=== PATIENT | female | born 2000 | race American Indian/Alaskan Native ===

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

== ENCOUNTER 2018-05-19 19:56 | Emergency (ER) | payer MEDICAID ==
--- NOTE | 2018-05-19 20:10 | Emergency Department Report ---
Blank Doc - Documentation Documentation: This is a 18-year-old female that presents with nausea vomiting. This initial assessment/diagnostic orders/clinical plan/treatment(s) is/are subject to change based on patient's health status, clinical progression and re- assessment by fellow clinical providers in the ED. Further treatment and workup at subsequent clinical providers discretion. Patient/guardians urged not to elope from the ED as their condition may be serious if not clinically assessed and managed. Initial orders include: 1- Patient sent to [facility] for further evaluation and treatment 2- labs 3- UA
[2018-05-19 20:46] LABS: Basophils % (Auto) 0.6 % (0.0-1.8); Eosinophils % (Auto) 0.5 % (0.0-4.3); Hematocrit 40.5 % (30.3-42.9); Hemoglobin 13.9 gm/dl (10.1-14.3); Lymphocytes # (Auto) 2.4 K/mm3 (1.2-5.4); Lymphocytes % (Auto) 33.1 % (13.4-35.0); Mean Corpuscular HGB Conc 34 % (30-34); Mean Corpuscular Volume 89 fl (79-97); Monocytes # (Auto) 0.6 K/mm3 (0.0-0.8); Monocytes % (Auto) 7.9 % (0.0-7.3); Platelet Count 159 K/mm3 (140-440); Red Blood Count 4.55 M/mm3 (3.65-5.03); Red Cell Distribution Width 13.7 % (13.2-15.2)
[2018-05-19 20:54] LABS: Alanine Aminotransferase 19 units/L (7-56); Albumin 4.3 g/dL (3.9-5); BUN/Creatinine Ratio 9; Blood Urea Nitrogen 7 mg/dL (7-17); Calcium 9.4 mg/dL (8.4-10.2); Hemolysis Index 11
[2018-05-19 21:00] LABS: Bilirubin,Direct < 0.2 mg/dL (0-0.2)
[2018-05-19 21:22] LABS: Bilirubin,Urine NEG (Negative); Blood,Urine NEG (Negative); Color,Urine Yellow (Yellow); Mucus,Urine FEW /HPF; Urobilinogen,Urine < 2.0 mg/dL (<2.0)
[2018-05-19 21:24] LABS: Protein,Urine >500 mg/dL (Negative)
[2018-05-19 21:25] LABS: HCG Qualitative,Urine Negative (Negative)
--- NOTE | 2018-05-19 23:57 | Emergency Department Report ---
Vomiting/Diarrhea - [facility] Chief Complaint: Nausea/Vomiting/Diarrhea Stated Complaint: N/V Time Seen by Provider: 05/19/18 20:09 Duration: Today Severity: moderate Nausea/Vomiting Severity: Moderate Diarrhea Severity: None Pain Location: Generalized Pain Severity: None Symptoms: Yes Able to Tolerate Fluids, No Watery Diarrhea, No Bloody diarrhea, No Fever, No Recent Unusual Foods, No Recent Untreated Water, No Recent use of Antibiotics, No Family w/ Similar Symptoms, No Contacts w/ Similar Symptoms, No Rash, No Hematuria, No Recent URI Symptoms Other History: This is a 18-year-old -[place] female accompanied by mother with nausea and vomiting that started this morning. Patient states she was at school and felt nauseous without vomiting. When she arrived home nausea increase with vomiting. Mother states patient vomited multiple times and unable to keep anything down. Patient reports a burning sensation to upper abdomen that is radiating to chest. ED Review of Systems ROS: Stated complaint: N/V Other details as noted in HPI Constitutional: denies: chills, fever Respiratory: denies: cough, shortness of breath, wheezing Cardiovascular: denies: chest pain, palpitations Gastrointestinal: nausea, vomiting. denies: abdominal pain (epigastric pain), diarrhea Genitourinary: denies: urgency, dysuria, discharge Skin: denies: rash, lesions Neurological: denies: headache, weakness, paresthesias Psychiatric: denies: anxiety, depression ED Past Medical Hx - Past Medical History Hx Psychiatric Treatment: Yes (anxiety) Additional medical history: Schizophrenia - Social History Smoking Status: Never Smoker Substance Use Type: None - Medications Home Medications: Home Medications Medication Instructions Recorded Confirmed Last Taken Type Benztropine [Cogentin] 2 mg PO QHS 02/28/16 02/28/16 Unknown History Ciprofloxacin HCl [Cipro] 500 mg PO BID #14 tablet 05/20/18 Unknown Rx Ondansetron [Zofran Odt] 4 mg PO Q8HR PRN #15 tab.rapdis 05/20/18 Unknown Rx Vomiting Diarrhea Exam - Exam General: Vital signs noted. No distress. Alert and acting appropriately. HEENT: Yes Pharyngeal Erythema (erythematous posterior pharynx, uvula midline), Yes Moist Mucous Membranes, No Pharyngeal Exudates, No Rhinorrhea, No Conjuctival Injection, No Frontal Tenderness, No Maxillary Tenderness Neck: No Adenopathy, No Rigidity Lungs: Yes Clear Lung Sounds, Yes Good Air Exchange, No Wheezes, No Stridor, No Cough, No Nasal Flaring, No Retractions, No Use of Accessory Muscles Heart exam: Regular: Yes, Murmur: No, Tachycardia: No Abdomen: Tenderness: No, Peritoneal Signs: No, Distention: No, Hyperactive Bowel sounds: No Skin exam: Rash: No, Edema: No, Normal turgor: Yes Neurologic: Alert and oriented, no deficits. Musculoskeletal: Unremarkable. ED Course Vital Signs 05/19/18 20:10 Temperature 98.7 F Pulse Rate 72 Respiratory 20 Rate Blood Pressure 146/90 O2 Sat by Pulse 98 Oximetry ED Medical Decision Making - Lab Data Result diagrams: 05/19/18 20:16 05/19/18 20:16 Lab Results 05/19/18 05/19/18 05/19/18 Range/Units 20:16 20:16 20:34 WBC 7.2 (4.5-11.0) K/mm3 RBC 4.55 (3.65-5.03) M/mm3 Hgb 13.9 (10.1-14.3) gm/dl Hct 40.5 (30.3-42.9) % MCV 89 (79-97) fl MCH 31 (28-32) pg MCHC 34 (30-34) % RDW 13.7 (13.2-15.2) % Plt Count 159 (140-440) K/mm3 Lymph % (Auto) 33.1 (13.4-35.0) % [place] % (Auto) 7.9 H (0.0-7.3) % Eos % (Auto) 0.5 (0.0-4.3) % Baso % (Auto) 0.6 (0.0-1.8) % Lymph # 2.4 (1.2-5.4) K/mm3 [place] # 0.6 (0.0-0.8) K/mm3 Eos # 0.0 (0.0-0.4) K/mm3 Baso # 0.0 (0.0-0.1) K/mm3 Seg Neutrophils % 57.9 (40.0-70.0) % Seg Neutrophils # 4.2 (1.8-7.7) K/mm3 Sodium 140 (137-145) mmol/L Potassium 3.9 (3.6-5.0) mmol/L Chloride 101.2 (98-107) mmol/L Carbon Dioxide 28 (22-30) mmol/L Anion Gap 15 mmol/L BUN 7 (7-17) mg/dL Creatinine 0.8 (0.7-1.2) mg/dL Estimated GFR > 60 ml/min BUN/Creatinine Ratio 9 % Glucose 120 H (65-100) mg/dL Calcium 9.4 (8.4-10.2) mg/dL Total Bilirubin 0.40 (0.1-1.2) mg/dL Direct Bilirubin < 0.2 (0-0.2) mg/dL Indirect Bilirubin 0.2 mg/dL AST 20 (5-40) units/L ALT 19 (7-56) units/L Alkaline Phosphatase 62 (35-129) units/L Total Protein 7.6 (6.3-8.2) g/dL Albumin 4.3 (3.9-5) g/dL Albumin/Globulin Ratio 1.3 % Lipase 21 (13-60) units/L Urine Color Yellow (Yellow) Urine Turbidity Clear (Clear) Urine pH 7.0 (5.0-7.0) Ur Specific [place] 1.023 (1.003-1.030) Urine Protein >500 (Negative) mg/dL Urine Glucose (UA) Neg (Negative) mg/dL Urine Ketones Neg (Negative) mg/dL Urine Blood Neg (Negative) Urine Nitrite Neg (Negative) Urine Bilirubin Neg (Negative) Urine Urobilinogen < 2.0 (<2.0) mg/dL Ur Leukocyte Esterase Sm (Negative) Urine WBC (Auto) 9.0 H (0.0-6.0) /HPF Urine RBC (Auto) 4.0 (0.0-6.0) /HPF U Epithel Cells (Auto) 2.0 (0-13.0) /HPF Urine Mucus Few /HPF Urine HCG, Qual Negative (Negative) - Medical Decision Making Patient was examined by me. Vitals are normal and patient is in no acute distr ess. Obtained labs. Mild leukocyte Estrace and urinalysis. All of the labs are unremarkable. On focal exam patient is nontender to abdomen with palpation. Patient will be treated for acute cystitis. Patient informed of results. Start Zofran and nitrofurantoin. Plan discussed with patient to discharge home and treat outpatient. He agrees with ER plan. Patient discharged home in stable condition. Follow up with PCP in 2-3 days. Critical care attestation.: If time is entered above; I have spent that time in minutes in the direct care of this critically ill patient, excluding procedure time. ED Disposition Clinical Impression: Nausea and vomiting in adult patient Acute cystitis Qualifiers: Hematuria presence: without hematuria Qualified Code(s): N30.00 - Acute cystitis without hematuria Disposition: TO HOME OR SELFCARE Is pt being admited?: No Does the pt Need Aspirin: No Condition: Stable Instructions: Urinary Tract Infection in Women (ED), Acute Nausea and Vomiting (ED) Additional Instructions: Increase fluid intake to 1L to 2L daily. Complete full course of antibiotics as prescribed. Avoid drinking alcohol while taking antibiotics and for 24 hours after completion. Follow up with primary care provider in 2-3 days. Prescriptions: Ciprofloxacin HCl [Cipro] 500 mg PO BID #14 tablet Ondansetron [Zofran Odt] 4 mg PO Q8HR PRN #15 tab.rapdis PRN Reason: Nausea And Vomiting Referrals: YANNICK MURRELL MD [Primary Care Provider] - 3-5 Days Forms: Accompanied Note, Work/School Release Form(ED) Time of Disposition: 00:57
[2018-05-20] MEDS ORDERED: ZOFRAN IV ONE (00:16)
[2018-05-20] MEDS ORDERED: NACL 0.9% 1000 ML 1,000 ML IV ONE (00:16)
[2018-05-20 02:11] VITALS: BP 105/60
== END 2018-05-20 02:36 | disposition home or self-care (01) ==
LOC: ED 19:56
DX: R11.2 Nausea with vomiting, unspecified (principal); N30.00 Acute cystitis without hematuria
CPT/HCPCS: 36415; 80048; 80076; 81001; 81025; 83690; 85025; 96361; 96374; 99284; J2405; J7030

== ENCOUNTER 2018-07-05 21:07 | Emergency (ER) | payer MEDICAID ==
[2018-07-05] MEDS ORDERED: ATIVAN IM PRN (21:37)
--- NOTE | 2018-07-05 21:38 | Emergency Department Report ---
ED General Adult HPI - General Chief complaint: Psych Stated complaint: MH EVAL/BODY PAIN Time Seen by Provider: 07/05/18 21:29 Source: patient, family, RN notes reviewed Mode of arrival: Ambulatory Limitations: Other (patient is psychotic. Patient is disorganized.) - History of Present Illness Initial comments: This is a 18-year-old female. The patient is not known to this provider previously. The patient has a history of psychiatric disease, and is brought to the hospital by her mother for psychosis. Initially, in the emergency room, patient screaming, feels like her chest is opening up, having tactile hallucinations, and is very difficult to redirect. Patient required medication with Haldol. After medication, patient denies physical pain. She may no complaint of overdosing. Her mother is a very poor historian. The patient is psychotic, and she cannot describe exacerbating or relieving factors, qualitative nature of her symptoms, radiation, or how long her symptoms have been going on for. -: unknown Radiation: other Quality: other Consistency: other Improves with: other Worsens with: other - Related Data Home Medications Medication Instructions Recorded Confirmed Last Taken Benztropine [Cogentin] 2 mg PO QHS 02/28/16 07/05/18 Unknown Previous Rx's Medication Instructions Recorded Last Taken Type Ciprofloxacin HCl [Cipro] 500 mg PO BID #14 tablet 05/20/18 Unknown Rx Ondansetron [Zofran Odt] 4 mg PO Q8HR PRN #15 tab.rapdis 05/20/18 Unknown Rx Allergies Allergy/AdvReac Type Severity Reaction Status Date / Time No Known Allergies Allergy Unverified 02/28/16 12:23 ED Review of Systems ROS: Stated complaint: MH EVAL/BODY PAIN Other details as noted in HPI Comment: Unobtainable due to pts medical conditions ED Past Medical Hx - Past Medical History Hx Psychiatric Treatment: Yes (anxiety) Additional medical history: Schizophrenia - Social History Smoking Status: Never Smoker Substance Use Type: None - Medications Home Medications: Home Medications Medication Instructions Recorded Confirmed Last Taken Type Benztropine [Cogentin] 2 mg PO QHS 02/28/16 07/05/18 Unknown History Ciprofloxacin HCl [Cipro] 500 mg PO BID #14 tablet 05/20/18 07/05/18 Unknown Rx Ondansetron [Zofran Odt] 4 mg PO Q8HR PRN #15 tab.rapdis 05/20/18 07/05/18 Unknown Rx ED Physical Exam - General Limitations: Other (patient is psychotic and disorganized) General appearance: in distress, obese, other (patient initially yelling and screaming, sentence structure makes no sense.) - Head Head exam: Present: atraumatic, normocephalic - Eye Eye exam: Present: normal appearance, EOMI. Absent: nystagmus - ENT ENT exam: Present: normal exam, normal orophraynx, mucous membranes moist, normal external ear exam - Neck Neck exam: Present: normal inspection, full ROM. Absent: tenderness, meningismus - Respiratory Respiratory exam: Present: normal lung sounds bilaterally. Absent: respiratory distress - Cardiovascular Cardiovascular Exam: Present: normal rhythm, tachycardia, normal heart sounds. Absent: bradycardia, systolic murmur, diastolic murmur, rubs, gallop - GI/Abdominal GI/Abdominal exam: Present: soft. Absent: distended, tenderness, guarding, rebound, rigid, pulsatile mass - Extremities Exam Extremities exam: Present: normal inspection, full ROM, other (2+ pulses noted in the bilateral upper, lower extremities. Compartments soft. No long bony tenderness. The pelvis is stable.). Absent: pedal edema, joint swelling, calf tenderness - Back Exam Back exam: Present: normal inspection, full ROM. Absent: tenderness, CVA tenderness (R), paraspinal tenderness, vertebral tenderness - Neurological Exam Neurological exam: Present: alert (patient name. Follows some commands after Haldol.), other (there is no facial droop. Moving 4 extremities. Yelling nonsensically.) - Psychiatric Psychiatric exam: Present: anxious - Skin Skin exam: Present: warm, dry, intact, normal color. Absent: rash ED Course Vital Signs 07/05/18 07/05/18 21:16 23:08 Temperature 98.5 F 98.2 F Pulse Rate 126 H 75 Respiratory 18 16 Rate Blood Pressure 169/104 Blood Pressure 130/86 [Left] O2 Sat by Pulse 96 96 Oximetry - Reevaluation(s) Reevaluation #1: 07/05/18 23:57 Differential diagnosis, including not limited to: Psychosis, medical clearance for psychiatric placement Assessment and plan: 18-year-old female with probable psychosis. Abnormal vital signs have normalized. Of note, during the patient's initial evaluation, she would stop screaming, and was able to answer what medication she took. She was also able to describe the indications for some of her medications. Her physical exam is now unremarkable, screening laboratory studies unremarkable. We will continue most of her current outpatient medications. She is placed on a 1013. At this point in time, the patient does not appear to have an immediate medical contraindication to psychiatric admission, evaluation and consultation. Her physical exam is unremarkable, and she is resting comfortably in her stretcher. A psychiatric consultation is requested. ED Medical Decision Making - Lab Data Result diagrams: 07/05/18 23:19 07/05/18 21:46 Vital Signs 07/05/18 07/05/18 21:16 23:08 Temperature 98.5 F 98.2 F Pulse Rate 126 H 75 Respiratory 18 16 Rate Blood Pressure 169/104 Blood Pressure 130/86 [Left] O2 Sat by Pulse 96 96 Oximetry Lab Results 07/05/18 07/05/18 07/05/18 Range/Units 21:46 21:46 21:46 WBC (4.5-11.0) K/mm3 RBC (3.65-5.03) M/mm3 Hgb (10.1-14.3) gm/dl Hct (30.3-42.9) % MCV (79-97) fl MCH (28-32) pg MCHC (30-34) % RDW (13.2-15.2) % Plt Count (140-440) K/mm3 Sodium 142 (137-145) mmol/L Potassium 4.1 (3.6-5.0) mmol/L Chloride 102.8 (98-107) mmol/L Carbon Dioxide 25 (22-30) mmol/L Anion Gap 18 mmol/L BUN 8 (7-17) mg/dL Creatinine 1.0 (0.7-1.2) mg/dL Estimated GFR > 60 ml/min BUN/Creatinine Ratio 8 % Glucose 98 (65-100) mg/dL Calcium 10.0 (8.4-10.2) mg/dL Magnesium 1.90 (1.7-2.3) mg/dL Total Creatine Kinase 381 H (30-135) units/L TSH (0.270-4.200) mlU/mL Free T4 1.32 (0.76-1.46) ng/dL HCG, Quant (0-4) mIU/mL Urine Color (Yellow) Urine Turbidity (Clear) Urine pH (5.0-7.0) Ur Specific [place] (1.003-1.030) Urine Protein (Negative) mg/dL Urine Glucose (UA) (Negative) mg/dL Urine Ketones (Negative) mg/dL Urine Blood (Negative) Urine Nitrite (Negative) Urine Bilirubin (Negative) Urine Urobilinogen (<2.0) mg/dL Ur Leukocyte Esterase (Negative) Urine WBC (Auto) (0.0-6.0) /HPF Urine RBC (Auto) (0.0-6.0) /HPF U Epithel Cells (Auto) (0-13.0) /HPF Urine Mucus /HPF Salicylates (2.8-20.0) mg/dL Urine Opiates Screen Urine Methadone Screen Acetaminophen (10.0-30.0) ug/mL Ur Barbiturates Screen Valproic Acid (50-100) ug/mL Ur Phencyclidine Scrn Ur Amphetamines Screen U Benzodiazepines Scrn Urine Cocaine Screen U Marijuana (THC) Screen Drugs of Abuse Note Plasma/Serum Alcohol (0-0.07) % 07/05/18 07/05/18 07/05/18 Range/Units 21:46 21:46 21:46 WBC (4.5-11.0) K/mm3 RBC (3.65-5.03) M/mm3 Hgb (10.1-14.3) gm/dl Hct (30.3-42.9) % MCV (79-97) fl MCH (28-32) pg MCHC (30-34) % RDW (13.2-15.2) % Plt Count (140-440) K/mm3 Sodium (137-145) mmol/L Potassium (3.6-5.0) mmol/L Chloride (98-107) mmol/L Carbon Dioxide (22-30) mmol/L Anion Gap mmol/L BUN (7-17) mg/dL Creatinine (0.7-1.2) mg/dL Estimated GFR ml/min BUN/Creatinine Ratio % Glucose (65-100) mg/dL Calcium (8.4-10.2) mg/dL Magnesium (1.7-2.3) mg/dL Total Creatine Kinase (30-135) units/L TSH 0.887 (0.270-4.200) mlU/mL Free T4 (0.76-1.46) ng/dL HCG, Quant < 2 (0-4) mIU/mL Urine Color (Yellow) Urine Turbidity (Clear) Urine pH (5.0-7.0) Ur Specific [place] (1.003-1.030) Urine Protein (Negative) mg/dL Urine Glucose (UA) (Negative) mg/dL Urine Ketones (Negative) mg/dL Urine Blood (Negative) Urine Nitrite (Negative) Urine Bilirubin (Negative) Urine Urobilinogen (<2.0) mg/dL Ur Leukocyte Esterase (Negative) Urine WBC (Auto) (0.0-6.0) /HPF Urine RBC (Auto) (0.0-6.0) /HPF U Epithel Cells (Auto) (0-13.0) /HPF Urine Mucus /HPF Salicylates < 0.3 L (2.8-20.0) mg/dL Urine Opiates Screen Urine Methadone Screen Acetaminophen (10.0-30.0) ug/mL Ur Barbiturates Screen Valproic Acid (50-100) ug/mL Ur Phencyclidine Scrn Ur Amphetamines Screen U Benzodiazepines Scrn Urine Cocaine Screen U Marijuana (THC) Screen Drugs of Abuse Note Plasma/Serum Alcohol (0-0.07) % 07/05/18 07/05/18 07/05/18 Range/Units 21:46 21:46 21:46 WBC (4.5-11.0) K/mm3 RBC (3.65-5.03) M/mm3 Hgb (10.1-14.3) gm/dl Hct (30.3-42.9) % MCV (79-97) fl MCH (28-32) pg MCHC (30-34) % RDW (13.2-15.2) % Plt Count (140-440) K/mm3 Sodium (137-145) mmol/L Potassium (3.6-5.0) mmol/L Chloride (98-107) mmol/L Carbon Dioxide (22-30) mmol/L Anion Gap mmol/L BUN (7-17) mg/dL Creatinine (0.7-1.2) mg/dL Estimated GFR ml/min BUN/Creatinine Ratio % Glucose (65-100) mg/dL Calcium (8.4-10.2) mg/dL Magnesium (1.7-2.3) mg/dL Total Creatine Kinase (30-135) units/L TSH (0.270-4.200) mlU/mL Free T4 (0.76-1.46) ng/dL HCG, Quant (0-4) mIU/mL Urine Color (Yellow) Urine Turbidity (Clear) Urine pH (5.0-7.0) Ur Specific [place] (1.003-1.030) Urine Protein (Negative) mg/dL Urine Glucose (UA) (Negative) mg/dL Urine Ketones (Negative) mg/dL Urine Blood (Negative) Urine Nitrite (Negative) Urine Bilirubin (Negative) Urine Urobilinogen (<2.0) mg/dL Ur Leukocyte Esterase (Negative) Urine WBC (Auto) (0.0-6.0) /HPF Urine RBC (Auto) (0.0-6.0) /HPF U Epithel Cells (Auto) (0-13.0) /HPF Urine Mucus /HPF Salicylates (2.8-20.0) mg/dL Urine Opiates Screen Urine Methadone Screen Acetaminophen < 5.0 L (10.0-30.0) ug/mL Ur Barbiturates Screen Valproic Acid < 2.8 L (50-100) ug/mL Ur Phencyclidine Scrn Ur Amphetamines Screen U Benzodiazepines Scrn Urine Cocaine Screen U Marijuana (THC) Screen Drugs of Abuse Note Plasma/Serum Alcohol < 0.01 (0-0.07) % 07/05/18 07/05/18 07/05/18 Range/Units 23:08 23:08 23:19 WBC 6.0 (4.5-11.0) K/mm3 RBC 4.52 (3.65-5.03) M/mm3 Hgb 13.9 (10.1-14.3) gm/dl Hct 40.3 (30.3-42.9) % MCV 89 (79-97) fl MCH 31 (28-32) pg MCHC 34 (30-34) % RDW 13.3 (13.2-15.2) % Plt Count 169 (140-440) K/mm3 Sodium (137-145) mmol/L Potassium (3.6-5.0) mmol/L Chloride (98-107) mmol/L Carbon Dioxide (22-30) mmol/L Anion Gap mmol/L BUN (7-17) mg/dL Creatinine (0.7-1.2) mg/dL Estimated GFR ml/min BUN/Creatinine Ratio % Glucose (65-100) mg/dL Calcium (8.4-10.2) mg/dL Magnesium (1.7-2.3) mg/dL Total Creatine Kinase (30-135) units/L TSH (0.270-4.200) mlU/mL Free T4 (0.76-1.46) ng/dL HCG, Quant (0-4) mIU/mL Urine Color Yellow (Yellow) Urine Turbidity Clear (Clear) Urine pH 6.0 (5.0-7.0) Ur Specific [place] 1.025 (1.003-1.030) Urine Protein 100 mg/dl (Negative) mg/dL Urine Glucose (UA) Neg (Negative) mg/dL Urine Ketones Neg (Negative) mg/dL Urine Blood Neg (Negative) Urine Nitrite Neg (Negative) Urine Bilirubin Neg (Negative) Urine Urobilinogen 2.0 (<2.0) mg/dL Ur Leukocyte Esterase Sm (Negative) Urine WBC (Auto) 5.0 (0.0-6.0) /HPF Urine RBC (Auto) 3.0 (0.0-6.0) /HPF U Epithel Cells (Auto) 1.0 (0-13.0) /HPF Urine Mucus 1+ /HPF Salicylates (2.8-20.0) mg/dL Urine Opiates Screen Presumptive negative Urine Methadone Screen Presumptive negative Acetaminophen (10.0-30.0) ug/mL Ur Barbiturates Screen Presumptive negative Valproic Acid (50-100) ug/mL Ur Phencyclidine Scrn Presumptive negative Ur Amphetamines Screen Presumptive negative U Benzodiazepines Scrn Presumptive negative Urine Cocaine Screen Presumptive negative U Marijuana (THC) Screen Presumptive negative Drugs of Abuse Note Disclamer Plasma/Serum Alcohol (0-0.07) % - EKG Data -: EKG Interpreted by Me EKG shows normal: sinus rhythm Rate: normal - EKG Data 07/05/18 23:57 This is a sinus rhythm, 86 bpm, normal axis, normal intervals, motion artifact, EKG does not appear to represent ST elevation myocardial infarction, this is an unremarkable EKG. Critical care attestation.: If time is entered above; I have spent that time in minutes in the direct care of this critically ill patient, excluding procedure time. ED Disposition Clinical Impression: Psychosis Disposition: DC/TX-65 PSY HOSP/PSY UNIT Is pt being admited?: No Condition: Good Referrals: PRIMARY CARE, [Primary Care Provider] - 3-5 Days
[2018-07-05] MEDS ORDERED: HALDOL ONE (21:41)
[2018-07-05] MEDS ORDERED: ATIVAN ONE (21:41)
[2018-07-05] MEDS: HALDOL IM PRN (21:46)
[2018-07-05] MEDS ORDERED: GEODON IM ONE ×2 (22:19→22:30)
[2018-07-05 22:30] LABS: BUN/Creatinine Ratio 8; Blood Urea Nitrogen 8 mg/dL (7-17); Hemolysis Index 6
[2018-07-05 23:29] LABS: Hematocrit 40.3 % (30.3-42.9); Hemoglobin 13.9 gm/dl (10.1-14.3); Mean Corpuscular HGB Conc 34 % (30-34); Mean Corpuscular Volume 89 fl (79-97); Platelet Count 169 K/mm3 (140-440); Red Blood Count 4.52 M/mm3 (3.65-5.03); Red Cell Distribution Width 13.3 % (13.2-15.2)
[2018-07-05 23:34] LABS: Amphetamine Screen,Urine PRESUMPTIVE NEGATIVE; Benzodiazepines Screen,Urine PRESUMPTIVE NEGATIVE; Cannabinoid Screen,Urine PRESUMPTIVE NEGATIVE; Cocaine Screen,Urine PRESUMPTIVE NEGATIVE; Methadone Screen,Urine PRESUMPTIVE NEGATIVE; Opiate Screen,Urine PRESUMPTIVE NEGATIVE
[2018-07-05 23:35] LABS: Bilirubin,Urine NEG (Negative); Blood,Urine NEG (Negative); Color,Urine Yellow (Yellow); Mucus,Urine 1+ /HPF
[2018-07-06] MEDS ORDERED: PROTONIX PO SCH (10:00)
[2018-07-06] MEDS ORDERED: TRIMOX PO SCH (10:00)
[2018-07-06] MEDS ORDERED: BIAXIN PO SCH (10:00)
[2018-07-06] MEDS: REGLAN PO SCH ×3 (11:00→18:57)
[2018-07-06] MEDS: HALDOL IM PRN (11:17)
--- NOTE | 2018-07-06 12:10 | Consultation ---
History of Present Illness - Reason for Consult Consult date: 07/06/18 Reason for consult: Mental Health Evaluation Requesting physician: VERO GARCÍA - Chief Complaint Chief complaint: "My chest is going to open up" - History of Present Psychiatric Illness 18 y.o. AA female who presented to the ER for bizarre behavior. Today the patient is cooperative, but tangent during the assessment. She stated that her chest is going to open up. She adamant that her "chest issue" is real. She has a blunted affect throughout t he interview. Most of her answers were not logical. She required redirection to keep her on topic. Overall, the patient is a poor historian. No gestures of SI/HI's. Medications and Allergies Allergies Allergy/AdvReac Type Severity Reaction Status Date / Time No Known Allergies Allergy Unverified 02/28/16 12:23 Home Medications Medication Instructions Recorded Confirmed Last Taken Type Benztropine [Cogentin] 2 mg PO QHS 02/28/16 07/05/18 Unknown History Ciprofloxacin HCl [Cipro] 500 mg PO BID #14 tablet 05/20/18 07/05/18 Unknown Rx Ondansetron [Zofran Odt] 4 mg PO Q8HR PRN #15 tab.rapdis 05/20/18 07/05/18 Unknown Rx Active Meds: Active Medications Amoxicillin (Trimox) 1,000 mg PO BID [facility] Stop: 07/16/18 22:01 Last Admin: 07/06/18 11:03 Dose: 1,000 mg Documented by: Clarithromycin (Biaxin) 500 mg PO BID [facility] Stop: 07/16/18 22:01 Last Admin: 07/06/18 11:09 Dose: 500 mg Documented by: Haloperidol (Haldol) 5 mg PO QHS [facility] Haloperidol Lactate (Haldol) 5 mg IM Q6HR PRN PRN Reason: Agitation Last Admin: 07/05/18 21:46 Dose: 5 mg Documented by: Lorazepam (Ativan) 2 mg IM Q4HR PRN PRN Reason: Agitation Last Admin: 07/05/18 21:46 Dose: 2 mg Documented by: Metoclopramide HCl (Reglan) 5 mg PO QID [facility] Last Admin: 07/06/18 11:00 Dose: 5 mg Documented by: Pantoprazole Sodium (Protonix) 40 mg PO BID [facility] Stop: 07/16/18 22:01 Last Admin: 07/06/18 11:00 Dose: 40 mg Documented by: Valproic Acid (Depakene) 250 mg PO QHS [facility] Past psychiatric history - Past Medical History Past Surgical History: No surgical history - past Psychiatric treatment and history psychiatric treatment history: Several inpatient psy settings per the patient. Denies a fam psy hx. - Social History Social history: lives with family Mental Status Exam - Vital signs Last Vital Signs Temp 98.0 F 07/06/18 08:31 Pulse 18 L 07/06/18 08:31 Resp 18 07/06/18 08:31 BP 130/47 07/06/18 08:31 Pulse Ox 97 07/06/18 08:31 - Exam Narrative exam: MSE: Appearance: cooperative Behavior: regular eye contact Speech: regular rate and tone Mood: "tired" Affect: blunted Thought Process: tangential Thought Content: denies SI/HI's and VH's, paranoid, delusional Motor Activity: sitting up in bed Cognition: A/O x 3 Insight: poor Judgment: poor Results Result Diagrams: 07/05/18 23:19 07/05/18 21:46 Abnormal lab results 07/05/18 07/05/18 07/05/18 Range/Units 21:46 21:46 21:46 Total Creatine Kinase 381 H (30-135) units/L Salicylates < 0.3 L (2.8-20.0) mg/dL Acetaminophen < 5.0 L (10.0-30.0) ug/mL Valproic Acid (50-100) ug/mL 07/05/18 Range/Units 21:46 Total Creatine Kinase (30-135) units/L Salicylates (2.8-20.0) mg/dL Acetaminophen (10.0-30.0) ug/mL Valproic Acid < 2.8 L (50-100) ug/mL All other labs normal. Assessment and Plan Assessment and plan: Impression: Unspecified Psychosis. The patient is cooperative, but tangent during the assessment. DDx: Substance Induced Psychosis recommendation/Plan: Continue 1013 and start Ropserdal 1 mg po HS for psychosis and Cogentin 0.5 mg PO HS for EPS prevention. Attempted to discuss possible metabolic side effects of Risperdal with the patient. Dipso: The patient was referred to inpatient psy services. Will staff with Dr Tammie Couch.
[2018-07-06 20:38] VITALS: BP 124/77
[2018-07-06] MEDS ORDERED: RisperDAL PO SCH (22:00)
[2018-07-06] MEDS ORDERED: HALDOL PO SCH (22:00)
[2018-07-06] MEDS ORDERED: COGENTIN PO SCH (22:00)
== END 2018-07-06 19:38 ==
LOC: EEVIPCON 21:07 → ED 21:07
DX: F29 Unspecified psychosis not due to a substance or known physiological condition (principal); F20.9 Schizophrenia, unspecified; F41.9 Anxiety disorder, unspecified
CPT/HCPCS: 36415; 80048; 80164; 80307; 81001; 82550; 83735; 84439; 84443; 84702; 85027; 93005; 93010; 96372; 99285; G0480; J1630; J2060; J3486; 80320

== ENCOUNTER 2019-02-05 22:14 | Emergency (ER) | payer MEDICAID ==
--- NOTE | 2019-02-05 22:29 | Event Note ---
ED Screening Note Date of service: 02/05/19 Time: 22:21 ED Screening Note: Reports upper and lower back pain. Feels discomfot. H/O back pain with . No period for 7 days but now reports vaginal bleeding. H/O bipolar do and tremors chronic. Denies urinary symptoms. Denies fever or chills. Denies dexual activity. Depakote , Haldol and cogentin . Foolow by [facility] alert and non toxic BACK: PT reports some discomfor with palpation of t and l spine. NL c spine. positive tremors This initial assessment/diagnostic orders/clinical plan/treatment(s) is/are subject to change based on patients health status, clinical progression and re- assessment by fellow clinical providers in the ED. Further treatment and workup at subsequent clinical providers discretion. Patient/guardian urged not to elope from the ED as their condition may be serious if not clinically assessed and managed. Initial orders include: labs
[2019-02-05] MEDS ORDERED: HALOPERIDOL LACTATE 5 MG/1 ML INJ IM PRN (22:58)
[2019-02-05] MEDS ORDERED: LORazepam 2 MG/ML VIAL IM PRN (22:58)
--- NOTE | 2019-02-05 22:59 | Emergency Department Report ---
ED General Adult HPI - General Chief complaint: Back Pain/Injury Stated complaint: SHAKING/EMESIS Time Seen by Provider: 02/05/19 22:20 Source: family, RN notes reviewed, old records reviewed Mode of arrival: Ambulatory Limitations: Other (the patient is psychotic and disorganized. The patient is a poor historian) - History of Present Illness Initial comments: The patient is a 19-year-old female whom I have evaluated in the past. The patient has a history of psychosis and disorganized behavior. She presented to the ER with an acute psychotic break. Apparently she initially presented with a complaint of nausea, vomiting and shaking. At one point time, she made complaint of back pain. Apparently, she had a shaking episode in the emergency room, and began to act violently and shaking in an agitated fashion. The patient did not respond to verbal commands, de-escalation techniques or show of force. She complained of feeling like her body was caving in on her. The patient required medication with haloperidol, Ativan, and Geodon for safety. The patient is a poor historian. The patient cannot describe exacerbating or relieving factors. The patient makes no complaint of physical pain. Her agitation and shaking episode was greatly improved with the aforementioned medications. Patient not able to describe exacerbating, relieving factors, qualitative nature of her symptoms or radiation. -: unknown Severity scale (0 -10): 0 Quality: other Consistency: other Improves with: other Worsens with: other - Related Data Home Medications Medication Instructions Recorded Confirmed Last Taken Benztropine [Cogentin] 2 mg PO QHS 02/28/16 07/05/18 Unknown Previous Rx's Medication Instructions Recorded Last Taken Type Ciprofloxacin HCl [Cipro] 500 mg PO BID #14 tablet 05/20/18 Unknown Rx Ondansetron [Zofran Odt] 4 mg PO Q8HR PRN #15 tab.rapdis 05/20/18 Unknown Rx Allergies Allergy/AdvReac Type Severity Reaction Status Date / Time No Known Allergies Allergy Unverified 02/28/16 12:23 ED Review of Systems ROS: Stated complaint: SHAKING/EMESIS Other details as noted in HPI Comment: Unobtainable due to pts medical conditions (patient is acutely delusional and psychotic) ED Past Medical Hx - Past Medical History Previous Medical History?: Yes Hx Psychiatric Treatment: Yes (anxiety, Bipolar) Additional medical history: Schizophrenia, Chronic Tremors - Surgical History Past Surgical History?: No - Social History Smoking Status: Never Smoker Substance Use Type: None - Medications Home Medications: Home Medications Medication Instructions Recorded Confirmed Last Taken Type Benztropine [Cogentin] 2 mg PO QHS 02/28/16 07/05/18 Unknown History Ciprofloxacin HCl [Cipro] 500 mg PO BID #14 tablet 05/20/18 07/05/18 Unknown Rx Ondansetron [Zofran Odt] 4 mg PO Q8HR PRN #15 tab.rapdis 05/20/18 07/05/18 Unknown Rx ED Physical Exam - General Limitations: Other (psychosis, disorganized) General appearance: anxious, in distress, obese - Head Head exam: Present: atraumatic, normocephalic - Eye Eye exam: Present: normal appearance, EOMI. Absent: nystagmus - ENT ENT exam: Present: normal exam, normal orophraynx, mucous membranes moist, normal external ear exam - Neck Neck exam: Present: normal inspection, full ROM - Respiratory Respiratory exam: Present: normal lung sounds bilaterally. Absent: respiratory distress - Cardiovascular Cardiovascular Exam: Present: regular rate, normal rhythm, normal heart sounds. Absent: bradycardia, tachycardia, irregular rhythm, systolic murmur, diastolic murmur, rubs, gallop - GI/Abdominal GI/Abdominal exam: Present: soft. Absent: distended, tenderness, guarding, rigid, pulsatile mass - Extremities Exam Extremities exam: Present: normal inspection, full ROM, other (2+ pulses noted in the bilateral upper, lower extremities. There is no long bone tenderness. Musculoskeletal compartments are soft. The pelvis is stable.). Absent: pedal edema, joint swelling, calf tenderness - Back Exam Back exam: Present: normal inspection. Absent: tenderness, CVA tenderness (R), CVA tenderness (L), paraspinal tenderness, vertebral tenderness - Neurological Exam Neurological exam: Present: alert, other (the patient is alert to name. The patient is not following commands. There is no facial droop. The patient moves 4 extremities spontaneously. The patient is alert to name. She knows the year. She reports she's not had a menstruation for 7 years.) - Psychiatric Psychiatric exam: Present: agitated, anxious - Skin Skin exam: Present: warm, dry, intact, normal color. Absent: rash ED Course Vital Signs 02/05/19 02/05/1902/06/19 22:19 22:27 00:59 Temperature 98.9 F 98.2 F Pulse Rate 125 H 94 H Respiratory 16 22 Rate Blood Pressure 172/86 Blood Pressure 124/64 [Left] O2 Sat by Pulse 100 97 Oximetry 02/06/19 01:00 Temperature Pulse Rate 95 H Respiratory 23 Rate Blood Pressure 133/97 Blood Pressure [Left] O2 Sat by Pulse 97 Oximetry - Reevaluation(s) Reevaluation #1: 02/06/19 00:49 Differential diagnosis, including but not limited to: Psychosis, medical clear ance for psychiatric placement, seizure, pseudoseizure, convulsion Assessment and plan: 19-year-old female with extensive psychiatric history presenting with disorganized behavior, psychosis, agitation, requiring medication of haloperidol, Ativan and Geodon. Her tachycardia has resolved. Her hypertension has resolved. She is now much more comfortable after medication. Initial laboratory studies reviewed and appreciated. Anion gap likely secondary to tachypnea, likely secondary to agitation, and psychosis. Her exam today similar to prior examination of which I personally evaluated this patient. She is placed on a 1013. CT scan brain, abdomen pelvis pending. Urinalysis not consistent with urinary tract infection. Repeat basic metabolic panel is pending. Reevaluation #2: 02/06/19 01:[address] scan brain negative for acute disease. CT scan abdomen pelvis negative for acute disease. Repeat laboratory studies pending. Reevaluation #3: 02/06/19 02:22 Laboratory studies show normalization metabolic derangement CO2 normalized, anion gap resolved. At this point in time, the patient does not appear to have an immediate medical contraindication to psychiatric admission, evaluation, consultation and placement. ED Medical Decision Making - Lab Data Result diagrams: 02/05/19 23:06 02/06/19 01:40 Vital Signs 02/05/19 02/05/19 22:19 22:27 Temperature 98.9 F Pulse Rate 125 H Respiratory 16 Rate Blood Pressure 172/86 O2 Sat by Pulse 100 Oximetry Lab Results 02/05/19 02/05/19 02/05/19 Range/Units 23:06 23:06 23:06 WBC 11.3 H (4.5-11.0) K/mm3 RBC 4.63 (3.65-5.03) M/mm3 Hgb 14.6 H (10.1-14.3) gm/dl Hct 43.9 H (30.3-42.9) % MCV 95 (79-97) fl MCH 32 (28-32) pg MCHC 33 (30-34) % RDW 14.2 (13.2-15.2) % Plt Count 168 (140-440) K/mm3 PT 13.3 (12.2-14.9) Sec. INR 1.02 (0.87-1.13) Sodium (137-145) mmol/L Potassium (3.6-5.0) mmol/L Chloride (98-107) mmol/L Carbon Dioxide (22-30) mmol/L Anion Gap mmol/L BUN (7-17) mg/dL Creatinine (0.7-1.2) mg/dL Estimated GFR ml/min BUN/Creatinine Ratio % Glucose (65-100) mg/dL Calcium (8.4-10.2) mg/dL Magnesium (1.7-2.3) mg/dL Total Bilirubin (0.1-1.2) mg/dL AST (5-40) units/L ALT (7-56) units/L Alkaline Phosphatase (35-129) units/L Total Creatine Kinase (30-135) units/L Total Protein (6.3-8.2) g/dL Albumin (3.9-5) g/dL Albumin/Globulin Ratio % TSH (0.270-4.200) mlU/mL HCG, Quant (0-4) mIU/mL Urine Color (Yellow) Urine Turbidity (Clear) Urine pH (5.0-7.0) Ur Specific [place] (1.003-1.030) Urine Protein (Negative) mg/dL Urine Glucose (UA) (Negative) mg/dL Urine Ketones (Negative) mg/dL Urine Blood (Negative) Urine Nitrite (Negative) Urine Bilirubin (Negative) Urine Urobilinogen (<2.0) mg/dL Ur Leukocyte Esterase (Negative) Urine WBC (Auto) (0.0-6.0) /HPF Urine RBC (Auto) (0.0-6.0) /HPF U Epithel Cells (Auto) (0-13.0) /HPF Urine Mucus /HPF Salicylates < 0.3 L (2.8-20.0) mg/dL Urine Opiates Screen Urine Methadone Screen Acetaminophen (10.0-30.0) ug/mL Ur Barbiturates Screen Valproic Acid 62.0 (50-100) ug/mL Ur Phencyclidine Scrn Ur Amphetamines Screen U Benzodiazepines Scrn Urine Cocaine Screen U Marijuana (THC) Screen Drugs of Abuse Note Plasma/Serum Alcohol (0-0.07) % 02/05/19 02/05/19 02/05/19 Range/Units 23:06 23:06 23:06 WBC (4.5-11.0) K/mm3 RBC (3.65-5.03) M/mm3 Hgb (10.1-14.3) gm/dl Hct (30.3-42.9) % MCV (79-97) fl MCH (28-32) pg MCHC (30-34) % RDW (13.2-15.2) % Plt Count (140-440) K/mm3 PT (12.2-14.9) Sec. INR (0.87-1.13) Sodium 139 (137-145) mmol/L Potassium 4.0 (3.6-5.0) mmol/L Chloride 100.8 (98-107) mmol/L Carbon Dioxide 13 L (22-30) mmol/L Anion Gap 29 mmol/L BUN 15 (7-17) mg/dL Creatinine 1.2 (0.7-1.2) mg/dL Estimated GFR > 60 ml/min BUN/Creatinine Ratio 13 % Glucose 104 H (65-100) mg/dL Calcium 9.6 (8.4-10.2) mg/dL Magnesium 2.20 (1.7-2.3) mg/dL Total Bilirubin 0.50 (0.1-1.2) mg/dL AST 17 (5-40) units/L ALT 17 (7-56) units/L Alkaline Phosphatase 49 (35-129) units/L Total Creatine Kinase 253 H (30-135) units/L Total Protein 8.2 (6.3-8.2) g/dL Albumin 4.6 (3.9-5) g/dL Albumin/Globulin Ratio 1.3 % TSH 3.360 (0.270-4.200) mlU/mL HCG, Quant < 2 (0-4) mIU/mL Urine Color (Yellow) Urine Turbidity (Clear) Urine pH (5.0-7.0) Ur Specific [place] (1.003-1.030) Urine Protein (Negative) mg/dL Urine Glucose (UA) (Negative) mg/dL Urine Ketones (Negative) mg/dL Urine Blood (Negative) Urine Nitrite (Negative) Urine Bilirubin (Negative) Urine Urobilinogen (<2.0) mg/dL Ur Leukocyte Esterase (Negative) Urine WBC (Auto) (0.0-6.0) /HPF Urine RBC (Auto) (0.0-6.0) /HPF U Epithel Cells (Auto) (0-13.0) /HPF Urine Mucus /HPF Salicylates (2.8-20.0) mg/dL Urine Opiates Screen Urine Methadone Screen Acetaminophen (10.0-30.0) ug/mL Ur Barbiturates Screen Valproic Acid (50-100) ug/mL Ur Phencyclidine Scrn Ur Amphetamines Screen U Benzodiazepines Scrn Urine Cocaine Screen U Marijuana (THC) Screen Drugs of Abuse Note Plasma/Serum Alcohol (0-0.07) % 02/05/19 02/05/19 02/05/19 Range/Units 23:06 23:06 23:22 WBC (4.5-11.0) K/mm3 RBC (3.65-5.03) M/mm3 Hgb (10.1-14.3) gm/dl Hct (30.3-42.9) % MCV (79-97) fl MCH (28-32) pg MCHC (30-34) % RDW (13.2-15.2) % Plt Count (140-440) K/mm3 PT (12.2-14.9) Sec. INR (0.87-1.13) Sodium (137-145) mmol/L Potassium (3.6-5.0) mmol/L Chloride (98-107) mmol/L Carbon Dioxide (22-30) mmol/L Anion Gap mmol/L BUN (7-17) mg/dL Creatinine (0.7-1.2) mg/dL Estimated GFR ml/min BUN/Creatinine Ratio % Glucose (65-100) mg/dL Calcium (8.4-10.2) mg/dL Magnesium (1.7-2.3) mg/dL Total Bilirubin (0.1-1.2) mg/dL AST (5-40) units/L ALT (7-56) units/L Alkaline Phosphatase (35-129) units/L Total Creatine Kinase (30-135) units/L Total Protein (6.3-8.2) g/dL Albumin (3.9-5) g/dL Albumin/Globulin Ratio % TSH (0.270-4.200) mlU/mL HCG, Quant (0-4) mIU/mL Urine Color Yellow (Yellow) Urine Turbidity Clear (Clear) Urine pH 6.0 (5.0-7.0) Ur Specific [place] 1.029 (1.003-1.030) Urine Protein 300 mg/dl (Negative) mg/dL Urine Glucose (UA) Neg (Negative) mg/dL Urine Ketones Neg (Negative) mg/dL Urine Blood Lg (Negative) Urine Nitrite Neg (Negative) Urine Bilirubin Neg (Negative) Urine Urobilinogen < 2.0 (<2.0) mg/dL Ur Leukocyte Esterase Tr (Negative) Urine WBC (Auto) 11.0 H (0.0-6.0) /HPF Urine RBC (Auto) 38.0 (0.0-6.0) /HPF U Epithel Cells (Auto) 1.0 (0-13.0) /HPF Urine Mucus Few /HPF Salicylates (2.8-20.0) mg/dL Urine Opiates Screen Urine Methadone Screen Acetaminophen < 5.0 L (10.0-30.0) ug/mL Ur Barbiturates Screen Valproic Acid (50-100) ug/mL Ur Phencyclidine Scrn Ur Amphetamines Screen U Benzodiazepines Scrn Urine Cocaine Screen U Marijuana (THC) Screen Drugs of Abuse Note Plasma/Serum Alcohol < 0.01 (0-0.07) % 02/05/19 Range/Units 23:22 WBC (4.5-11.0) K/mm3 RBC (3.65-5.03) M/mm3 Hgb (10.1-14.3) gm/dl Hct (30.3-42.9) % MCV (79-97) fl MCH (28-32) pg MCHC (30-34) % RDW (13.2-15.2) % Plt Count (140-440) K/mm3 PT (12.2-14.9) Sec. INR (0.87-1.13) Sodium (137-145) mmol/L Potassium (3.6-5.0) mmol/L Chloride (98-107) mmol/L Carbon Dioxide (22-30) mmol/L Anion Gap mmol/L BUN (7-17) mg/dL Creatinine (0.7-1.2) mg/dL Estimated GFR ml/min BUN/Creatinine Ratio % Glucose (65-100) mg/dL Calcium (8.4-10.2) mg/dL Magnesium (1.7-2.3) mg/dL Total Bilirubin (0.1-1.2) mg/dL AST (5-40) units/L ALT (7-56) units/L Alkaline Phosphatase (35-129) units/L Total Creatine Kinase (30-135) units/L Total Protein (6.3-8.2) g/dL Albumin (3.9-5) g/dL Albumin/Globulin Ratio % TSH (0.270-4.200) mlU/mL HCG, Quant (0-4) mIU/mL Urine Color (Yellow) Urine Turbidity (Clear) Urine pH (5.0-7.0) Ur Specific [place] (1.003-1.030) Urine Protein (Negative) mg/dL Urine Glucose (UA) (Negative) mg/dL Urine Ketones (Negative) mg/dL Urine Blood (Negative) Urine Nitrite (Negative) Urine Bilirubin (Negative) Urine Urobilinogen (<2.0) mg/dL Ur Leukocyte Esterase (Negative) Urine WBC (Auto) (0.0-6.0) /HPF Urine RBC (Auto) (0.0-6.0) /HPF U Epithel Cells (Auto) (0-13.0) /HPF Urine Mucus /HPF Salicylates (2.8-20.0) mg/dL Urine Opiates Screen Presumptive negative Urine Methadone Screen Presumptive negative Acetaminophen (10.0-30.0) ug/mL Ur Barbiturates Screen Presumptive negative Valproic Acid (50-100) ug/mL Ur Phencyclidine Scrn Presumptive negative Ur Amphetamines Screen Presumptive negative U Benzodiazepines Scrn Presumptive negative Urine Cocaine Screen Presumptive negative U Marijuana (THC) Screen Presumptive negative Drugs of Abuse Note Disclamer Plasma/Serum Alcohol (0-0.07) % - EKG Data -: EKG Interpreted by Sd EKG shows normal: sinus rhythm - EKG Data 02/06/19 00:51 The EKG shows a sinus tachycardia, 103 bpm, normal axis, normal intervals, see within normal limits, there is low voltage, there is motion artifact, the EKG is abnormal, it is not consistent with a stemi - Radiology Data Radiology results: pending, report reviewed, image reviewed Critical care attestation.: If time is entered above; I have spent that time in minutes in the direct care of this critically ill patient, excluding procedure time. ED Disposition Clinical Impression: Medical clearance for psychiatric admission Disposition: [id number]/TX-65 PSY HOSP/PSY UNIT Is pt being admited?: No Does the pt Need Aspirin: No Condition: Good Referrals: PRIMARY CARE, [Primary Care Provider] - 3-5 Days
[2019-02-05 23:30] LABS: Hematocrit 43.9 % (30.3-42.9); Hemoglobin 14.6 gm/dl (10.1-14.3); Mean Corpuscular HGB Conc 33 % (30-34); Mean Corpuscular Volume 95 fl (79-97); Platelet Count 168 K/mm3 (140-440); Red Blood Count 4.63 M/mm3 (3.65-5.03); Red Cell Distribution Width 14.2 % (13.2-15.2)
[2019-02-05 23:44] LABS: Alanine Aminotransferase 17 units/L (7-56); Albumin 4.6 g/dL (3.9-5); BUN/Creatinine Ratio 13; Blood Urea Nitrogen 15 mg/dL (7-17); Calcium 9.6 mg/dL (8.4-10.2); Hemolysis Index 6
[2019-02-05] MEDS ORDERED: SODIUM CHLORIDE 0.9% 1000 ML 2,000 ML IV ONE (23:44)
[2019-02-05] MEDS ORDERED: SODIUM CHLORIDE 0.9% 1000 ML 1,000 ML IV ONE (23:44)
[2019-02-05] MEDS ORDERED: ZIPRASIDONE MESYLATE 20 MG VIAL IM ONE (23:45)
[2019-02-05 23:46] LABS: INR 1.02 (0.87-1.13)
[2019-02-05 23:58] LABS: Bilirubin,Urine NEG (Negative); Blood,Urine LG (Negative); Color,Urine Yellow (Yellow); Mucus,Urine FEW /HPF; Urobilinogen,Urine < 2.0 mg/dL (<2.0)
[2019-02-06 00:06] LABS: Protein,Urine 300 mg/dL mg/dL (Negative)
[2019-02-06 00:26] LABS: Amphetamine Screen,Urine PRESUMPTIVE NEGATIVE; Benzodiazepines Screen,Urine PRESUMPTIVE NEGATIVE; Cannabinoid Screen,Urine PRESUMPTIVE NEGATIVE; Cocaine Screen,Urine PRESUMPTIVE NEGATIVE; Methadone Screen,Urine PRESUMPTIVE NEGATIVE; Opiate Screen,Urine PRESUMPTIVE NEGATIVE
[2019-02-06] MEDS ORDERED: WATER FOR INJ Sterile (PF) 10 ML ONE (00:30)
--- NOTE | 2019-02-06 00:48 | Cat Scan Report ---
Examination: CT of the head without contrast Clinical information: Altered mental status Comparison: None Technical: Multiple axial CT images of the head were obtained without intravenous contrast. Sagittal and coronal reformats were obtained. All CTs at this facility utilize dose reduction techniques inc luding automated exposure control, iterative reconstruction and weight based dosing when appropriate to reduce patient radiation dose to as low as reasonable achievable. Findings: There is no CT evidence of acute intracranial hemorrhage or large territorial infarct. The ventricular system is normal in size. There are no extra-axial fluid collections. Evaluation of bony structures demonstrates no evidence of acute bony abnormality. There is a small mu cocele versus mucous retention cyst within the right maxillary sinus. The paranasal sinuses and masto id air cells otherwise appear clear. Impression: 1. No CT evidence of acute intracranial process. Signer Name: Elsa Alegria MD Signed: 02/06/2019 12:43 AM Workstation Name: [id number]
--- NOTE | 2019-02-06 00:52 | Cat Scan Report ---
CT ABDOMEN AND PELVIS WITHOUT CONTRAST INDICATION: Nausea and vomiting TECHNICAL: Multiple axial CT images of the abdomen and pelvis were acquired without intravenous contr ast. Sagittal and coronal reformats were obtained. All CTs at this facility utilize dose reduction techniques including automated exposure control, iterative reconstruction and weight based dosing whe n appropriate to reduce patient radiation dose to as low as reasonable achievable. COMPARISON: None FINDINGS: Evaluation of the bilateral lung bases demonstrates no acute abnormality. Abdomen: Within the limitations of today's noncontrast study, the liver, gallbladder, spleen, pancrea s, bilateral adrenal glands and bilateral kidneys show no evidence of acute abnormality. There is no evidence of bowel obstruction or free fluid. The appendix is visualized and appears normal. Pelvis: No free fluid is seen within the pelvis. The urinary bladder appears normal. Bones and Soft Tissues: Evaluation of bony structures demonstrates no acute bony abnormality. Evalua tion of soft tissue structures demonstrates no evidence of acute soft tissue abnormality. IMPRESSION: 1. No evidence of acute obstructive or inflammatory process within the abdomen or pelvis. Signer Name: Elsa Alegria MD Signed: 02/06/2019 12:47 AM Workstation Name: [id number]
[2019-02-06 02:05] LABS: BUN/Creatinine Ratio 17; Blood Urea Nitrogen 15 mg/dL (7-17); Calcium 8.7 mg/dL (8.4-10.2); Hemolysis Index 10
--- NOTE | 2019-02-06 10:14 | Consultation ---
History of Present Illness - Reason for Consult Consult date: 02/06/19 Reason for consult: Mental Health Evaluation Requesting physician: VERO GARCÍA - Chief Complaint Chief complaint: "I'm just here" - History of Present Psychiatric Illness 19 y.o. AA female who presented to the ER for acute psychosis. Today the patient was disorganized during the assessment. She appeared to be responding to some type of stimuli throughout the interview. She did acknowledged hearing voices, but could not state what they were saying. Per the record, the patient was aggressive towards staff last night. Overall, the patient's insight was poor. No gestures of SI/HI's. Medications and Allergies Allergies Allergy/AdvReac Type Severity Reaction Status Date / Time No Known Allergies Allergy Unverified 02/28/16 12:23 Home Medications Medication Instructions Recorded Confirmed Last Taken Type Benztropine [Cogentin] 2 mg PO QHS 02/28/16 02/06/19 Unknown History Active Meds: Active Medications Benztropine Mesylate (Cogentin) 0.5 mg PO HS COUNT INCLUDES THE [facility] Haloperidol Lactate (Haldol) 5 mg IM Q6HR PRN PRN Reason: Agitation Last Admin: 02/05/19 23:07 Dose: 5 mg Documented by: Lorazepam (Ativan) 2 mg IM Q4HR PRN PRN Reason: Agitation Last Admin: 02/05/19 23:07 Dose: 2 mg Documented by: Risperidone (Risperdal) 1 mg PO HS COUNT INCLUDES THE [facility] Past psychiatric history - Past Medical History Past Medical History: No medical history Past Surgical History: No surgical history - past Psychiatric treatment and history psychiatric treatment history: Inpatient psy services in the past. Unable to obtain a [facility] psy hx. - Social History Social history: lives with family, other Mental Status Exam - Vital signs Last Vital Signs Temp 97.7 F 02/06/19 08:12 Pulse 84 02/06/19 08:12 Resp 12 02/06/19 09:21 BP 107/54 02/06/19 08:12 Pulse Ox 97 02/06/19 03:30 - Exam Narrative exam: MSE: Appearance: calm Behavior: regular eye contact Speech: regular rate and tone Mood: "okay" Affect: blunted Thought Process: disorganized Thought Content: no gestures of SI/HI's, responding to some type of stimuli Motor Activity: sitting up in bed Cognition: A/O x 3 Insight: poor Judgment: poor Results Result Diagrams: 02/05/19 23:06 02/06/19 01:40 Abnormal lab results 02/05/19 02/05/19 02/05/19 Range/Units 23:06 23:06 23:06 WBC 11.3 H (4.5-11.0) K/mm3 Hgb 14.6 H (10.1-14.3) gm/dl Hct 43.9 H (30.3-42.9) % Carbon Dioxide 13 L (22-30) mmol/L Glucose 104 H (65-100) mg/dL Total Creatine Kinase 253 H (30-135) units/L Urine WBC (Auto) (0.0-6.0) /HPF Salicylates < 0.3 L (2.8-20.0) mg/dL Acetaminophen (10.0-30.0) ug/mL 02/05/19 02/05/19 Range/Units 23:06 23:22 WBC (4.5-11.0) K/mm3 Hgb (10.1-14.3) gm/dl Hct (30.3-42.9) % Carbon Dioxide (22-30) mmol/L Glucose (65-100) mg/dL Total Creatine Kinase (30-135) units/L Urine WBC (Auto) 11.0 H (0.0-6.0) /HPF Salicylates (2.8-20.0) mg/dL Acetaminophen < 5.0 L (10.0-30.0) ug/mL All other labs normal. Assessment and Plan Assessment and plan: Impression: Unspecified Psychosis. The patient is calm during the assessment. UDS was negative. DDx: Schizophrenia, Bipolar DO with psychosis recommendation/Plan: Continue 1013. Start Risperdal 1 mg PO HS for psychosis, Cogentin 0.5 mg PO HS for EPS prevention, and Depakote 500 mg PO BID for mood. Attempted to discuss possible metabolic side effects of Risperdal with the patient. Baseline A1c/Lipid Panel ordered for the AM. Dipso: The patient was referred to inpatient psy services. Staffed with Dr Tammie Couch.
[2019-02-06 20:42] VITALS: BP 122/86
[2019-02-06] MEDS ORDERED: BENZTROPINE 0.5 MG TAB PO SCH (22:00)
[2019-02-06] MEDS ORDERED: risperiDONE 1 MG TAB PO SCH (22:00)
== END 2019-02-06 21:50 ==
LOC: ED 22:14
DX: F29 Unspecified psychosis not due to a substance or known physiological condition (principal); R11.2 Nausea with vomiting, unspecified; R10.9 Unspecified abdominal pain; F41.9 Anxiety disorder, unspecified; F31.9 Bipolar disorder, unspecified; F20.9 Schizophrenia, unspecified
CPT/HCPCS: 36415; 70450; 74176; 80048; 80053; 80164; 80307; 81001; 82150; 82550; 83690; 83735; 84443; 84702; 85027; 85610; 87086; 93005; 93010; 96360; 96361; 96372; 99285; J1630; J2060; J3486; J7030; 80320; G0480

== ENCOUNTER 2019-06-05 02:32 | Emergency (ER) | payer MEDICAID ==
--- NOTE | 2019-06-05 03:05 | Emergency Department Report ---
<ERLIN BARAJASMARVA Kamara - Last Filed: 06/05/19 04:32> ED Psych HPI - General Chief Complaint: Psych Stated Complaint: MH/HEARING VOICES Time Seen by Provider: 06/05/19 03:00 Source: patient Mode of arrival: Stretcher Limitations: Altered Mental Status - History of Present Illness MD Complaint: altered mental status, other -: Sudden Associated Psychiatric Symptoms: racing thoughts, auditory hallucinations, delusions History of same: Yes Quality: constant Improves With: medication, therapy Worsens With: other Context: not taking psychiatric Associated Symptoms: denies other symptoms. denies: confusion, headache, shortness of breath, nausea, vomiting, syncope, insomnia Treatments Prior to Arrival: none - Related Data Home Medications Medication Instructions Recorded Confirmed Last Taken Benztropine [Cogentin] 2 mg PO QHS 02/28/16 06/05/19 06/03/[address] [DepaKOTE DR] 250 mg PO TID 06/05/19 06/05/19 06/03/19 QUEtiapine [SEROquel] 100 mg PO DAILY 06/05/19 06/05/19 06/03/19 QUEtiapine [SEROquel] 200 mg PO HS 06/05/19 06/05/19 06/03/19 Allergies Allergy/AdvReac Type Severity Reaction Status Date / Time No Known Allergies Allergy Unverified 02/28/16 12:23 ED Review of Systems Constitutional: denies: chills, fever Eyes: denies: eye pain, eye discharge, vision change ENT: denies: ear pain, throat pain Respiratory: denies: cough, shortness of breath, wheezing Cardiovascular: denies: chest pain, palpitations Endocrine: no symptoms reported Gastrointestinal: denies: abdominal pain, nausea, diarrhea Genitourinary: denies: urgency, dysuria, discharge Musculoskeletal: denies: back pain, joint swelling, arthralgia Skin: denies: rash, lesions Neurological: denies: headache, weakness, paresthesias Psychiatric: auditory hallucinations. denies: anxiety, depression, visual hallucinations, homicidal thoughts, suicidal thoughts Hematological/Lymphatic: denies: easy bleeding, easy bruising ED Past Medical Hx - Past Medical History Previous Medical History?: Yes Hx Psychiatric Treatment: Yes (anxiety, Bipolar) Additional medical history: Schizophrenia, Chronic Tremors - Surgical History Past Surgical History?: Yes - Family History Family history: no significant - Social History Smoking Status: Former Smoker Substance Use Type: None - Medications Home Medications: Home Medications Medication Instructions Recorded Confirmed Last Taken Type Benztropine [Cogentin] 2 mg PO QHS 02/28/16 06/05/19 06/03/[address] [DepaKOTE DR] 250 mg PO TID 06/05/19 06/05/19 06/03/19 History QUEtiapine [SEROquel] 100 mg PO DAILY 06/05/19 06/05/19 06/03/19 History QUEtiapine [SEROquel] 200 mg PO HS 06/05/19 06/05/19 06/03/19 History ED Physical Exam - General Limitations: Altered Mental Status General appearance: alert, in no apparent distress - Head Head exam: Present: atraumatic, normocephalic - Eye Eye exam: Present: normal appearance - ENT ENT exam: Present: mucous membranes moist - Neck Neck exam: Present: normal inspection - Respiratory Respiratory exam: Present: normal lung sounds bilaterally. Absent: respiratory distress - Cardiovascular Cardiovascular Exam: Present: regular rate, normal rhythm. Absent: systolic murmur, diastolic murmur, rubs, gallop - GI/Abdominal GI/Abdominal exam: Present: soft, normal bowel sounds - Extremities Exam Extremities exam: Present: normal inspection - Back Exam Back exam: Present: normal inspection - Neurological Exam Neurological exam: Present: alert, oriented X3 - Psychiatric Psychiatric exam: Present: flat affect - Expanded Psychiatric Exam Expanded Focused psych exam: Present: delusional, paranoid, loose associations - Skin Skin exam: Present: warm, dry, intact, normal color. Absent: rash ED Course - Reevaluation(s) Reevaluation #1: Initial evaluation done. Patient will have labs done. Patient will have a medical clearance done. Patient's placed on a ER hold. 06/05/19 03:17 Reevaluation #2: Patient is medically cleared. Patient will remain in the ER as an ER hold until our mental health team and psychiatry team can clear the patient. The patient's final disposition will come from the psychiatry and mental health team. I discussed all results and clinical findings with patient. I discussed plan of care with patient. Patient agrees with plan of care. Patient is medically cleared 06/05/19 05:25 ED Medical Decision Making - Lab Data Result diagrams: 06/05/19 03:26 06/05/19 03:26 - Medical Decision Making Patient is a 19-year-old female that presents emergency room with complaints of hallucinations and acute psychosis. Patient's of her psychiatry medications. Patient placed on a ER hold and will await for a mental health evaluation. Patient is labs done and unremarkable. Patient is medically cleared. Patient's final disposition will come from our psychiatry team. - Differential Diagnosis Hallucination, psychosis, delusions ED Disposition Clinical Impression: Acute psychosis, Hallucination Disposition: DC/TX-65 PSY HOSP/PSY UNIT Is pt being admited?: No Does the pt Need Aspirin: No Condition: Stable Referrals: PRIMARY CAREMD [Primary Care Provider] - 2-3 Days <KRISHNA WOODARD - Last Filed: 06/06/19 21:02> ED Review of Systems ROS: Stated complaint: MH/HEARING VOICES Other details as noted in HPI ED Course Vital Signs 06/05/19 06/05/19 06/05/19 02:54 10:13 20:25 Temperature 98.9 F 98.5 F 98.7 F Pulse Rate 88 80 89 Respiratory 16 16 18 Rate Blood Pressure 126/77 Blood Pressure 126/77 126/86 122/75 [Right] O2 Sat by Pulse 97 99 96 Oximetry 06/06/19 02:00 Temperature 97.5 F L Pulse Rate 68 Respiratory 16 Rate Blood Pressure Blood Pressure 115/80 [Right] O2 Sat by Pulse 99 Oximetry - Reevaluation(s) Reevaluation #3: 06/05/19 18:36 EKJOHNSONBELIAM DUNBAR MERLENE Female : 2000 MedRec# [id number] 06/05/19 16:52 - MH Electrocardiograph Technician's Note by CASANDRA HALL Acct Num: [id number] : 2000 Patient Age: 19 MENTAL HEALTH ASSESSMENT COMPLETED: Pt is a 19 year old female who stated she came, "I'm seeing my brother laying in casket, and I start screaming, and then I ran down stairs. I was trying to call somebody to help me." Pt is displaying evidence of thought disorder/psychosis. Pt is tangential and fixated on saving the world. "This President is getting his revenge on the old President; he is making innocent people lose their thoughts. The war is happening, and I'm going to save the world. We have opportunity in [place]." "There is nothing left for me in [place]." Pt has incongruent mood and affect with impaired memory. Pt has poor judgment and poor insight. Pt appears to be responding to internal stimuli. Pt carries a diagnosis of Schizoaffective Bipolar Type. Pt reports, "I'm just helping the world out by seeing whats going to happen with this President," when asked if she has a current therapist/outpatient provider. "I go off and on and off and on and off my meds because of my ulcers, and it works to help my mental health." "I've been to several mental hospitals for my mental." ([facility], [facility]) When asked if the pt was suicidal; pt stated, "Sometimes I feel like I'm not important because they say I am mental health." Pt reports, "I always feel depressed because I have nobody, and the world is about to come to an end because they are going to legalize weed, but it's really coronavirus." Pt reports she has had no suicide attempts. Pt denies homicidal ideation; "No, I would never hurt anyone. I'm saving the world." Pt lives in [place] with pt's parents. Pt recently started working at [employer]. Pt reports she dropped out of college. Pt enjoys coloring and going to the park. Electrocardiograph Technician attempted to call both family member contacts that the pt gave: Brother Justice [phone] and "my dad," [phone], but there was no answer. RECOMMENDATION: Initiate 1013 due to psychosis; pt's meet criteria for inpatient stabilization. Mental health label designer will begin the referral process for inpatient treatment. Casandra Lopez LPC Initialized on 06/05/19 16:52 - END OF NOTE Reevaluation #4: 06/05/19 18:37 Patient was made a 1013 at this time. ED Medical Decision Making - Lab Data Result diagrams: 06/05/19 03:26 06/05/19 03:26 Lab Results 06/05/19 06/05/19 06/05/19 Range/Units 03:13 03:13 03:13 WBC (4.5-11.0) K/mm3 RBC (3.65-5.03) M/mm3 Hgb (10.1-14.3) gm/dl Hct (30.3-42.9) % MCV (79-97) fl MCH (28-32) pg MCHC (30-34) % RDW (13.2-15.2) % Plt Count (140-440) K/mm3 Lymph % (Auto) (13.4-35.0) % [place] % (Auto) (0.0-7.3) % Eos % (Auto) (0.0-4.3) % Baso % (Auto) (0.0-1.8) % Lymph # (1.2-5.4) K/mm3 [place] # (0.0-0.8) K/mm3 Eos # (0.0-0.4) K/mm3 Baso # (0.0-0.1) K/mm3 Seg Neutrophils % (40.0-70.0) % Seg Neutrophils # (1.8-7.7) K/mm3 Sodium (137-145) mmol/L Potassium (3.6-5.0) mmol/L Chloride (98-107) mmol/L Carbon Dioxide (22-30) mmol/L Anion Gap mmol/L BUN (7-17) mg/dL Creatinine (0.7-1.2) mg/dL Estimated GFR ml/min BUN/Creatinine Ratio % Glucose (65-100) mg/dL Calcium (8.4-10.2) mg/dL Urine Color Yellow (Yellow) Urine Turbidity Clear (Clear) Urine pH 6.0 (5.0-7.0) Ur Specific [place] 1.023 (1.003-1.030) Urine Protein 100 mg/dl (Negative) mg/dL Urine Glucose (UA) Neg (Negative) mg/dL Urine Ketones Neg (Negative) mg/dL Urine Blood Neg (Negative) Urine Nitrite Neg (Negative) Urine Bilirubin Neg (Negative) Urine Urobilinogen < 2.0 (<2.0) mg/dL Ur Leukocyte Esterase Neg (Negative) Urine WBC (Auto) 3.0 (0.0-6.0) /HPF Urine RBC (Auto) 2.0 (0.0-6.0) /HPF U Epithel Cells (Auto) 2.0 (0-13.0) /HPF Urine Mucus Few /HPF Urine HCG, Qual Negative (Negative) Salicylates (2.8-20.0) mg/dL Urine Opiates Screen Presumptive negative Urine Methadone Screen Presumptive negative Acetaminophen (10.0-30.0) ug/mL Ur Barbiturates Screen Presumptive negative Ur Phencyclidine Scrn Presumptive negative Ur Amphetamines Screen Presumptive negative U Benzodiazepines Scrn Presumptive negative Urine Cocaine Screen Presumptive negative U Marijuana (THC) Screen Presumptive negative Drugs of Abuse Note Disclamer Plasma/Serum Alcohol (0-0.07) % 06/05/19 06/05/19 06/05/19 Range/Units 03:26 03:26 03:35 WBC 5.3 (4.5-11.0) K/mm3 RBC 4.48 (3.65-5.03) M/mm3 Hgb 14.1 (10.1-14.3) gm/dl Hct 41.7 (30.3-42.9) % MCV 93 (79-97) fl MCH 32 (28-32) pg MCHC 34 (30-34) % RDW 14.6 (13.2-15.2) % Plt Count 101 L (140-440) K/mm3 Lymph % (Auto) 40.6 H (13.4-35.0) % [place] % (Auto) 12.2 H (0.0-7.3) % Eos % (Auto) 1.3 (0.0-4.3) % Baso % (Auto) 0.5 (0.0-1.8) % Lymph # 2.2 (1.2-5.4) K/mm3 [place] # 0.6 (0.0-0.8) K/mm3 Eos # 0.1 (0.0-0.4) K/mm3 Baso # 0.0 (0.0-0.1) K/mm3 Seg Neutrophils % 45.4 (40.0-70.0) % Seg Neutrophils # 2.4 (1.8-7.7) K/mm3 Sodium 140 (137-145) mmol/L Potassium 4.0 (3.6-5.0) mmol/L Chloride 100.6 (98-107) mmol/L Carbon Dioxide 26 (22-30) mmol/L Anion Gap 17 mmol/L BUN 14 (7-17) mg/dL Creatinine 1.1 (0.7-1.2) mg/dL Estimated GFR > 60 ml/min BUN/Creatinine Ratio 13 % Glucose 101 H (65-100) mg/dL Calcium 9.1 (8.4-10.2) mg/dL Urine Color (Yellow) Urine Turbidity (Clear) Urine pH (5.0-7.0) Ur Specific [place] (1.003-1.030) Urine Protein (Negative) mg/dL Urine Glucose (UA) (Negative) mg/dL Urine Ketones (Negative) mg/dL Urine Blood (Negative) Urine Nitrite (Negative) Urine Bilirubin (Negative) Urine Urobilinogen (<2.0) mg/dL Ur Leukocyte Esterase (Negative) Urine WBC (Auto) (0.0-6.0) /HPF Urine RBC (Auto) (0.0-6.0) /HPF U Epithel Cells (Auto) (0-13.0) /HPF Urine Mucus /HPF Urine HCG, Qual (Negative) Salicylates < 0.3 L (2.8-20.0) mg/dL Urine Opiates Screen Urine Methadone Screen Acetaminophen (10.0-30.0) ug/mL Ur Barbiturates Screen Ur Phencyclidine Scrn Ur Amphetamines Screen U Benzodiazepines Scrn Urine Cocaine Screen U Marijuana (THC) Screen Drugs of Abuse Note Plasma/Serum Alcohol (0-0.07) % 06/05/19 06/05/19 Range/Units 03:35 03:35 WBC (4.5-11.0) K/mm3 RBC (3.65-5.03) M/mm3 Hgb (10.1-14.3) gm/dl Hct (30.3-42.9) % MCV (79-97) fl MCH (28-32) pg MCHC (30-34) % RDW (13.2-15.2) % Plt Count (140-440) K/mm3 Lymph % (Auto) (13.4-35.0) % [place] % (Auto) (0.0-7.3) % Eos % (Auto) (0.0-4.3) % Baso % (Auto) (0.0-1.8) % Lymph # (1.2-5.4) K/mm3 [place] # (0.0-0.8) K/mm3 Eos # (0.0-0.4) K/mm3 Baso # (0.0-0.1) K/mm3 Seg Neutrophils % (40.0-70.0) % Seg Neutrophils # (1.8-7.7) K/mm3 Sodium (137-145) mmol/L Potassium (3.6-5.0) mmol/L Chloride (98-107) mmol/L Carbon Dioxide (22-30) mmol/L Anion Gap mmol/L BUN (7-17) mg/dL Creatinine (0.7-1.2) mg/dL Estimated GFR ml/min BUN/Creatinine Ratio % Glucose (65-100) mg/dL Calcium (8.4-10.2) mg/dL Urine Color (Yellow) Urine Turbidity (Clear) Urine pH (5.0-7.0) Ur Specific [place] (1.003-1.030) Urine Protein (Negative) mg/dL Urine Glucose (UA) (Negative) mg/dL Urine Ketones (Negative) mg/dL Urine Blood (Negative) Urine Nitrite (Negative) Urine Bilirubin (Negative) Urine Urobilinogen (<2.0) mg/dL Ur Leukocyte Esterase (Negative) Urine WBC (Auto) (0.0-6.0) /HPF Urine RBC (Auto) (0.0-6.0) /HPF U Epithel Cells (Auto) (0-13.0) /HPF Urine Mucus /HPF Urine HCG, Qual (Negative) Salicylates (2.8-20.0) mg/dL Urine Opiates Screen Urine Methadone Screen Acetaminophen < 5.0 L (10.0-30.0) ug/mL Ur Barbiturates Screen Ur Phencyclidine Scrn Ur Amphetamines Screen U Benzodiazepines Scrn Urine Cocaine Screen U Marijuana (THC) Screen Drugs of Abuse Note Plasma/Serum Alcohol < 0.01 (0-0.07) % Critical care attestation.: If time is entered above; I have spent that time in minutes in the direct care of this critically ill patient, excluding procedure time. ED Disposition Is pt being admited?: No Does the pt Need Aspirin: No
[2019-06-05 03:43] LABS: Bilirubin,Urine NEG (Negative); Blood,Urine NEG (Negative); Color,Urine Yellow (Yellow); Mucus,Urine FEW /HPF; Urobilinogen,Urine < 2.0 mg/dL (<2.0)
[2019-06-05 03:45] LABS: HCG Qualitative,Urine Negative (Negative)
[2019-06-05 03:54] LABS: Basophils % (Auto) 0.5 % (0.0-1.8); Eosinophils # (Auto) 0.1 K/mm3 (0.0-0.4); Eosinophils % (Auto) 1.3 % (0.0-4.3); Hematocrit 41.7 % (30.3-42.9); Hemoglobin 14.1 gm/dl (10.1-14.3); Lymphocytes # (Auto) 2.2 K/mm3 (1.2-5.4); Lymphocytes % (Auto) 40.6 % (13.4-35.0); Mean Corpuscular HGB Conc 34 % (30-34); Mean Corpuscular Volume 93 fl (79-97); Monocytes # (Auto) 0.6 K/mm3 (0.0-0.8); Monocytes % (Auto) 12.2 % (0.0-7.3); Platelet Count 101 K/mm3 (140-440); Red Blood Count 4.48 M/mm3 (3.65-5.03); Red Cell Distribution Width 14.6 % (13.2-15.2)
[2019-06-05 04:00] LABS: Amphetamine Screen,Urine PRESUMPTIVE NEGATIVE; Benzodiazepines Screen,Urine PRESUMPTIVE NEGATIVE; Cannabinoid Screen,Urine PRESUMPTIVE NEGATIVE; Cocaine Screen,Urine PRESUMPTIVE NEGATIVE; Methadone Screen,Urine PRESUMPTIVE NEGATIVE; Opiate Screen,Urine PRESUMPTIVE NEGATIVE
[2019-06-05 04:06] LABS: BUN/Creatinine Ratio 13; Blood Urea Nitrogen 14 mg/dL (7-17); Calcium 9.1 mg/dL (8.4-10.2); Hemolysis Index 5
[2019-06-05] MEDS ORDERED: ONDANSETRON 4 MG/2 ML INJ ONE (05:45)
[2019-06-05] MEDS ORDERED: ONDANSETRON 4 MG/2 ML INJ IM ONE ×2 (05:45→10:23)
[2019-06-05] MEDS ORDERED: LORazepam 1 MG TAB PO ONE (21:05)
[2019-06-05] MEDS ORDERED: LORazepam 1 MG TAB ONE (21:08)
[2019-06-05] MEDS ORDERED: ONDANSETRON 4 MG ODT TAB ONE (21:14)
[2019-06-05] MEDS ORDERED: ONDANSETRON 4 MG ODT TAB PO ONE (21:16)
[2019-06-05] MEDS ORDERED: ZIPRASIDONE MESYLATE 20 MG VIAL IM ONE ×2 (22:13→22:16)
[2019-06-05] MEDS ORDERED: WATER FOR INJ Sterile (PF) 10 ML ONE (22:16)
[2019-06-06 04:01] VITALS: BP 115/80
== END 2019-06-06 05:20 ==
LOC: ED 02:32
DX: F23 Brief psychotic disorder (principal); R41.82 Altered mental status, unspecified; F31.9 Bipolar disorder, unspecified; Z87.891 Personal history of nicotine dependence; Z79.899 Other long term (current) drug therapy
CPT/HCPCS: 36415; 80048; 80164; 80307; 81001; 81025; 85025; 96372; 99285; J2405; J3486; 80320; G0480; Q0162

== ENCOUNTER 2020-01-01 18:40 | Emergency (ER) | payer MEDICAID ==
[2020-01-01 19:34] VITALS: BP 113/66
== END 2020-01-01 23:20 | disposition left against medical advice (07) ==
LOC: ED 18:40
DX: H92.01 Otalgia, right ear (principal); J02.9 Acute pharyngitis, unspecified; Z53.21 Procedure and treatment not carried out due to patient leaving prior to being seen by health care provider

== ENCOUNTER 2020-03-12 18:21 | Emergency (ER) | payer MEDICAID ==
[2020-03-12] MEDS ORDERED: diphenhydrAMINE 50 MG/ML VIAL IM ONE (18:25)
[2020-03-12] MEDS ORDERED: ZIPRASIDONE MESYLATE 20 MG VIAL IM STA (18:26)
--- NOTE | 2020-03-12 18:31 | Event Note ---
ED Screening Note Date of service: 03/12/20 Time: 18:30 ED Screening Note: Patient with history of schizophrenia presents for anxiety and medication refill Patient is a poor historian During history taking, patient suddenly lunged herself out of her wheelchair backward hitting her head on the ground Patient is still mobile and responsive This initial assessment/diagnostic orders/clinical plan/treatment(s) is/are subject to change based on patients health status, clinical progression and re- assessment by fellow clinical providers in the ED. Further treatment and workup at subsequent clinical providers discretion. Patient/guardian urged not to elope from the ED as their condition may be serious if not clinically assessed and managed. Initial orders include: Labs CT head and neck Saúl Kinney, Sweta 1013
[2020-03-12 18:50] LABS: Basophils % (Auto) 0.4 % (0.0-1.8); Eosinophils # (Auto) 0.1 K/mm3 (0.0-0.4); Eosinophils % (Auto) 0.9 % (0.0-4.3); Hematocrit 43.6 % (30.3-42.9); Hemoglobin 14.6 gm/dl (10.1-14.3); Lymphocytes # (Auto) 3.3 K/mm3 (1.2-5.4); Lymphocytes % (Auto) 39.9 % (13.4-35.0); Mean Corpuscular HGB Conc 34 % (30-34); Mean Corpuscular Volume 92 fl (79-97); Monocytes # (Auto) 0.1 K/mm3 (0.0-0.8); Monocytes % (Auto) 0.7 % (0.0-7.3); Platelet Count 154 K/mm3 (140-440); Red Blood Count 4.76 M/mm3 (3.65-5.03); Red Cell Distribution Width 14.4 % (13.2-15.2)
[2020-03-12 19:11] LABS: Alanine Aminotransferase 12 units/L (7-56); Albumin 4.4 g/dL (3.9-5); BUN/Creatinine Ratio 13; Blood Urea Nitrogen 12 mg/dL (7-17); Calcium 9.5 mg/dL (8.4-10.2); Hemolysis Index 10
[2020-03-12] MEDS ORDERED: WATER FOR INJ Sterile (PF) 10 ML ONE (20:25)
[2020-03-12] MEDS ORDERED: ZIPRASIDONE MESYLATE 20 MG VIAL IM ONE (20:32)
[2020-03-12] MEDS ORDERED: diphenhydrAMINE 50 MG/ML VIAL ONE (20:33)
--- NOTE | 2020-03-12 20:54 | Emergency Department Report ---
HPI - General Chief Complaint: Psych Time Seen by Provider: 03/12/20 18:24 - HPI HPI: This is a 20-year-old -[place] female, with a history of bipolar disorder and schizophrenia, who initially presented with the complaint of having some anxiety and needing a refill of her medications. However, the patient has displayed some signs of psychosis and also has expressed some suicidal ideations. While getting her history taken by the midlevel provider in triage, the patient suddenly lunged and/or jumped out of her wheelchair and fell and hit the left side of her head. Apparently there was no loss of consciousness. A 1013 was signed by the midlevel provider and the patient is due to have a CT scan of the head and cervical spine without contrast. The patient says that she has not run out of her medications but has taken the last of them. She says that she went to the pharmacy to get a refill but "the prescriptions did not have my name on it." The patient tells me that she has both auditory and visual hallucinations. She is hearing that the "world is going to end" and is seeing "people who are not there." The patient also has some suicidal ideations without a plan. The patient says "I just do not think I want to be here anymor e." ED Past Medical Hx - Past Medical History Previous Medical History?: Yes Hx Psychiatric Treatment: Yes (anxiety, Bipolar) Additional medical history: Schizophrenia, Chronic Tremors. TMJ - Social History Smoking Status: Never Smoker Substance Use Type: None - Medications Home Medications: Home Medications Medication Instructions Recorded Confirmed Last Taken Type Benztropine [Cogentin] 2 mg PO QHS 02/28/16 06/05/19 06/03/[address] [DepaKOTE DR] 250 mg PO TID 06/05/19 06/05/19 06/03/19 History QUEtiapine [SEROquel] 100 mg PO DAILY 06/05/19 06/05/19 06/03/19 History QUEtiapine [SEROquel] 200 mg PO HS 06/05/19 06/05/19 06/03/19 History ED Review of Systems ROS: Stated complaint: ANXIETY Other details as noted in HPI Comment: All other systems reviewed and negative Constitutional: denies: chills, fever Eyes: denies: eye pain, vision change ENT: denies: ear pain, throat pain Respiratory: denies: cough, shortness of breath Cardiovascular: denies: chest pain, palpitations Gastrointestinal: denies: abdominal pain, vomiting Genitourinary: denies: dysuria, discharge Musculoskeletal: denies: back pain, arthralgia Neurological: headache. denies: numbness, paresthesias Psychiatric: anxiety, auditory hallucinations, visual hallucinations, suicidal thoughts Physical Exam - Physical Exam Vital Signs: Vital Signs 03/12/20 18:30 Pulse Rate 128 H Respiratory 40 H Rate Blood Pressure 188/85 [Right] O2 Sat by Pulse 97 Oximetry Physical Exam: GENERAL: The patient is well-developed well-nourished. HENT: Normocephalic. Patient has moist mucous membranes. EYES: Extraocular motions are intact. NECK: Supple. Trachea is midline. CHEST/LUNGS: Clear to auscultation. There is no respiratory distress noted. HEART/CARDIOVASCULAR: Regular. There is mild tachycardia. There is no murmur. ABDOMEN: Abdomen is soft, nontender. Patient has normal bowel sounds. SKIN: Skin is warm and dry. Small nonexpanding hematoma to the left parietal scalp with some overlying abrasions. NEURO: The patient is awake, alert, and oriented. The patient is cooperative. The patient has no focal neurologic deficits. Normal speech. Cranial nerves II through XII grossly intact. MUSCULOSKELETAL: There is no tenderness or deformity. There is no limitation range of motion. PSYCH: Patient has a flat affect. ED Course Vital Signs 03/12/20 18:30 Pulse Rate 128 H Respiratory 40 H Rate Blood Pressure 188/85 [Right] O2 Sat by Pulse 97 Oximetry ED Medical Decision Making - Lab Data Result diagrams: 03/12/20 18:33 03/12/20 18:33 - Radiology Data Radiology results: report reviewed CT of the head does not show any acute intracranial process including no ischemia, shift, mass, bleeding or skull fracture. CT of the cervical spine does not show any fracture, subluxation, or any acute process. - Medical Decision Making This patient initially presented to the emergency department with a complaint of anxiety and needing a refill of her medications. While being evaluated by the midlevel provider in triage, the patient suddenly jumped or lunged and fell out of the wheelchair and hit her head. No loss of consciousness. A CT scan of the head without contrast did not show any skull fracture, brain bleed, or any other acute process. CT of cervical spine did not show any fracture, subluxation, or any acute process. At the time of my examination the patient is much more calm, but did receive Geodon and Benadryl so the scans could be performed and to treat what appears to be some psychosis. The patient also admits to me that she has both auditory and visual hallucinations and suicidal ideations without a plan. Patient's labs have been mostly unremarkable including CBC, metabolic panel, blood alcohol level, urine drug screen, urinalysis. Vital signs have been reassuring throughout her ED course. She is medically cleared for psychiatric placement. Critical Care Time: No Critical care attestation.: If time is entered above; I have spent that time in minutes in the direct care of this critically ill patient, excluding procedure time. ED Disposition Clinical Impression: Suicidal ideations, Acute psychosis, History of bipolar disorder, History of schizophrenia Disposition: DC/TX-65 PSY HOSP/PSY UNIT Is pt being admited?: No Condition: Stable Time of Disposition: 00:28
--- NOTE | 2020-03-12 21:20 | Cat Scan Report ---
CT head/brain wo con INDICATION / CLINICAL INFORMATION: 20 years Female; head injury. TECHNIQUE: Routine CT head without contrast. All CT scans at this location are performed using CT dos e reduction for ALARA by means of automated exposure control. COMPARISON: None. FINDINGS: BRAIN / INTRACRANIAL CONTENTS: No acute hemorrhage, mass effect, midline shift, hydrocephalus, or acu te, large territorial infarct. No signs of significant atrophy or chronic infarct. No significant whi te matter abnormality seen. CRANIOCERVICAL JUNCTION: No significant abnormality. ORBITS: No significant abnormality of visualized orbits. SINUSES / MASTOIDS: Mild mucosal thickening seen in the ethmoids. ADDITIONAL FINDINGS: Subcutaneous soft tissue swelling is seen in the left parietal region. No signs of underlying calvarial fracture appreciated. IMPRESSION: 1. No focal mass, intracranial hemorrhage, hydrocephalus, or acute, large territorial infarct. Signer Name: Jewel Wagner MD, III Signed: 03/12/2020 9:16 PM Workstation Name: [id number]
--- NOTE | 2020-03-12 21:22 | Cat Scan Report ---
. CT cervical spine wo con INDICATION / CLINICAL INFORMATION: 20 years Female; head injury. TECHNIQUE: Axial CT images of the cervical spine were obtained. Sagittal and coronal reformatted images were pr oduced. All CT scans at this location are performed using CT dose reduction for ALARA by means of aut omated exposure control. COMPARISON: None available. FINDINGS: POST-SURGICAL CHANGES: None. ALIGNMENT: Straightening of the cervical spine noted, which may be related to patient positioning. VERTEBRAE: No signs of fracture. Vertebral bodies are grossly normal in height throughout. No signif icant facet joint disease or osseous foraminal narrowing appreciated. INTRAVERTEBRAL DISCS:Disc spaces are fairly well-maintained throughout without significant canal sten osis. PARASPINAL SOFT TISSUES: No significant abnormality. ADDITIONAL FINDINGS: Prominent soft tissue is seen in the roof the nasopharynx, presumably related to reactive adenoidal tissue. Please clinically correlate. Lingual and palatine tonsillar tissue are mi ldly prominent as well. IMPRESSION: 1. No signs of acute bony trauma to the cervical spine. Signer Name: Jewel Wagner MD, III Signed: 03/12/2020 9:17 PM Workstation Name: [id number]
[2020-03-12 23:20] LABS: Bacteria,Urine 1+ /HPF (Negative); Bilirubin,Urine NEG (Negative); Blood,Urine NEG (Negative); Color,Urine Yellow (Yellow); Mucus,Urine 3+ /HPF; Urobilinogen,Urine < 2.0 mg/dL (<2.0)
[2020-03-12 23:23] LABS: Protein,Urine >500 mg/dL (Negative)
[2020-03-12 23:25] LABS: Amphetamine Screen,Urine PRESUMPTIVE NEGATIVE; Benzodiazepines Screen,Urine PRESUMPTIVE NEGATIVE; Cannabinoid Screen,Urine PRESUMPTIVE NEGATIVE; Cocaine Screen,Urine PRESUMPTIVE NEGATIVE; Methadone Screen,Urine PRESUMPTIVE NEGATIVE; Opiate Screen,Urine PRESUMPTIVE NEGATIVE
[2020-03-12 23:41] VITALS: BP 120/82
[2020-03-13] MEDS ORDERED: LORazepam 2 MG/ML VIAL ONE (09:38)
[2020-03-13] MEDS ORDERED: HALOPERIDOL LACTATE 5 MG/1 ML INJ ONE (09:38)
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
[2020-03-13] MEDS ORDERED: HALOPERIDOL LACTATE 5 MG/1 ML INJ IM ONE (09:59)
[2020-03-13] MEDS ORDERED: LORazepam 2 MG/ML VIAL IM ONE (10:00)
[2020-03-13] MEDS ORDERED: diphenhydrAMINE 50 MG/ML VIAL IM ONE (10:00)
[2020-03-13] MEDS ORDERED: ZIPRASIDONE MESYLATE 20 MG VIAL IM PRN (10:02)
[2020-03-13] MEDS ORDERED: MELATONIN 5 MG TAB PO PRN (10:03)
[2020-03-13] MEDS ORDERED: QUEtiapine 100 MG TAB PO SCH (11:00)
[2020-03-13] MEDS ORDERED: DIVALPROEX DR 125 MG TAB PO SCH (14:00)
[2020-03-13] MEDS ORDERED: traZODone 50 MG TAB PO SCH (22:00)
== END 2020-03-13 10:15 ==
LOC: ED 18:21
DX: F23 Brief psychotic disorder (principal); R45.851 Suicidal ideations; F31.9 Bipolar disorder, unspecified; Z79.899 Other long term (current) drug therapy
CPT/HCPCS: 36415; 70450; 72125; 80053; 80307; 81001; 84702; 85025; 87086; 96372; 99285; J1200; J1630; J2060; J3486; 80320; G0480

== ENCOUNTER 2021-01-06 23:43 | Emergency (ER) | payer MEDICAID ==
[2021-01-06] MEDS ORDERED: LORazepam 2 MG/ML VIAL IV ONE (23:49)
[2021-01-06] MEDS ORDERED: ONDANSETRON 4 MG/2 ML INJ IV ONE (23:49)
--- NOTE | 2021-01-06 23:54 | Emergency Department Report ---
HPI - General Time Seen by Provider: 01/06/21 23:47 - HPI HPI: Charge nurse triage The patient is a 20-year-old female present with a chief complaint of bizarre behavior. Patient has a history of bipolar disorder and schizophrenia has been off her psychiatric medications for an unknown period of time. EMS was called for bizarre behavior and when they arrived on scene they report the patient was running around behaving in a bizarre fashion. When the patient was placed on a stretcher in the ambulance she began banging the back of her head on stretcher. EMS was able to calm the patient down verbally did not have to administer medication. In the ED the patient rambles on about how she had sex with her boyfriend all day for over a year. The patient occasionally gags and vomited once. ED Past Medical Hx - Past Medical History Hx Psychiatric Treatment: Yes (anxiety, Bipolar) Additional medical history: Schizophrenia, Chronic Tremors. TMJ - Family History Family history: no significant - Social History Smoking Status: Never Smoker Substance Use Type: None - Medications Home Medications: Home Medications Medication Instructions Recorded Confirmed Last Taken Type Benztropine [Cogentin] 2 mg PO QHS 02/28/16 06/05/19 06/03/[address] [DepaKOTE DR] 250 mg PO TID 06/05/19 06/05/19 06/03/19 History QUEtiapine [SEROquel] 100 mg PO DAILY 06/05/19 06/05/19 06/03/19 History QUEtiapine [SEROquel] 200 mg PO HS 06/05/19 06/05/19 06/03/19 History ED Review of Systems ROS: Stated complaint: MH EVAL Other details as noted in HPI Constitutional: no symptoms reported Eyes: denies: eye pain ENT: denies: throat pain Respiratory: no symptoms reported Cardiovascular: denies: chest pain Endocrine: no symptoms reported Gastrointestinal: nausea, vomiting Psychiatric: anxiety Physical Exam - Physical Exam Physical Exam: GENERAL: The patient is well-developed well-nourished female lying on stretcher very tearful occasionally crying out being consoled by EMS holding her hand at bedside. [] HEENT: Normocephalic. Atraumatic. Extraocular motions are intact. Patient has moist mucous membranes. NECK: Supple. Trachea midline CHEST/LUNGS: Clear to auscultation. There is no respiratory distress noted. HEART/CARDIOVASCULAR: Regular. There is no tachycardia. There is no gallop rub or murmur. ABDOMEN: Abdomen is soft, nontender. Patient has normal bowel sounds. There is no abdominal distention. SKIN: There is no rash. There is no edema. There is no diaphoresis. NEURO: The patient is awake, alert, and oriented. The patient is emotionally labile crying one moment and speaking very clearly without difficult the next. The patient is cooperative. The patient has no focal neurologic deficits. The patient has normal speech. GCS 15 MUSCULOSKELETAL: T There is no evidence of acute injury. ED Medical Decision Making - Lab Data Result diagrams: 01/07/21 00:32 01/07/21 00:32 Laboratory Tests 01/07/21 01/07/21 01/07/21 00:32 00:32 00:32 WBC 12.0 H RBC 4.39 Hgb 13.0 Hct 39.4 MCV 90 MCH 30 MCHC 33 RDW 14.0 Plt Count 147 [place] % (Auto) Review Nurse Sodium 135 L Potassium 3.6 Chloride 99.5 Carbon Dioxide 22 Anion Gap 17 BUN 11 Creatinine 0.9 Estimated GFR > 60 BUN/Creatinine Ratio 12 Glucose 87 Calcium 9.0 Total Bilirubin 0.40 AST 18 ALT 12 Alkaline Phosphatase 76 Total Protein 7.4 Albumin 4.2 Albumin/Globulin Ratio 1.3 HCG, Qual Salicylates < 0.3 L Acetaminophen Plasma/Serum Alcohol 01/07/21 01/07/21 01/07/21 00:32 00:32 00:32 WBC RBC Hgb Hct MCV MCH MCHC RDW Plt Count [place] % (Auto) Sodium Potassium Chloride Carbon Dioxide Anion Gap BUN Creatinine Estimated GFR BUN/Creatinine Ratio Glucose Calcium Total Bilirubin AST ALT Alkaline Phosphatase Total Protein Albumin Albumin/Globulin Ratio HCG, Qual Negative Salicylates Acetaminophen 5.0 L Plasma/Serum Alcohol < 0.01 - Differential Diagnosis Schizophrenia, bipolar disorder, UTI Critical care attestation.: If time is entered above; I have spent that time in minutes in the direct care of this critically ill patient, excluding procedure time. ED Disposition Clinical Impression: Schizophrenia Disposition: [address] [place] [address] Is pt being admited?: No Does the pt Need Aspirin: No Condition: Stable
[2021-01-07 01:21] LABS: Hematocrit 39.4 % (30.3-42.9); Mean Corpuscular HGB Conc 33 % (30-34); Mean Corpuscular Volume 90 fl (79-97); Platelet Count 147 K/mm3 (140-440); Red Blood Count 4.39 M/mm3 (3.65-5.03)
[2021-01-07] MEDS: diphenhydrAMINE 50 MG/ML VIAL IM PRN ×3 (01:30→20:32)
[2021-01-07] MEDS: HALOPERIDOL LACTATE 5 MG/1 ML INJ IM PRN ×3 (01:31→20:31)
[2021-01-07 01:37] LABS: Alanine Aminotransferase 12 units/L (7-56); Albumin 4.2 g/dL (3.9-5); BUN/Creatinine Ratio 12; Blood Urea Nitrogen 11 mg/dL (7-17); Hemolysis Index 3
[2021-01-07 02:28] LABS: Band Neutrophils # (Manual) 0.2 K/mm3; Total Cells Counted 100
[2021-01-07 02:29] LABS: Large Platelets Few; Platelet Estimate Consistent w Auto; RBC Morphology Normal
[2021-01-07] MEDS: LORazepam 2 MG/ML VIAL IM PRN (09:27)
--- NOTE | 2021-01-07 11:21 | Event Note ---
Date: 01/07/21 The patient was evaluated in the emergency department for symptoms described in the history of present illness. He/she was evaluated in the context of the global COVID-19 pandemic, which necessitated consideration that the patient might be at risk for infection with the virus that causes COVID-19. Institutional protocols and algorithms that pertain to the evaluation of patients at risk for COVID-19 are in a state of rapid change based on information released by regulatory bodies including the CDC and federal and state organizations. These policies and algorithms were followed during the patient's care in the emergency department. Please note that these policies, procedures and recommendations changed on a rapid basis. [id number] evaluation performed. Patient agitated, violent, does not respond to verbal de-escalation techniques or show of force. The patient was banging her head against the wall. The patient required chemical restraint, and seclusion. At my assessment, the patient is awake, breathing spontaneously moving 4 extremities. Laboratory studies, vital signs are reviewed and appreciated. We will add on valproic acid level as this patient has been on Depakote in the past. Urinalysis is pending. Patient meets criteria for 1013 hold/involuntary confinement. I have filled out this patient's 1013. Given young age, even if the patient has a urinary tract infection, despite self would not preclude psychiatric consultation, evaluation, disposition and placement. The emergency room will follow alongside, and when the patient's urinalysis results, if actionable, we will initiate appropriate therapy. Resuming Depakote/valproic acid level acceptable within normal limits, the patient remains medically suitable for psychiatric consultation, placement and disposition. Psychiatric consultation is pending at this time, we appreciate their recommendations. Vital Signs 01/06/21 01/07/21 01/07/21 23:45 00:30 03:00 Temperature 100.1 F H 99.8 F H Pulse Rate 105 H 95 H Respiratory 19 20 20 Rate Blood Pressure 120/79 122/80 [Right] O2 Sat by Pulse 98 98 99 Oximetry 01/07/21 01/07/21 09:26 09:32 Temperature 98.3 F Pulse Rate 82 Respiratory 20 Rate Blood Pressure 122/80 [Right] O2 Sat by Pulse 100 100 Oximetry Lab Results 01/07/21 01/07/21 01/07/21 Range/Units 00:32 00:32 00:32 WBC 12.0 H (4.5-11.0) K/mm3 RBC 4.39 (3.65-5.03) M/mm3 Hgb 13.0 (10.1-14.3) gm/dl Hct 39.4 (30.3-42.9) % MCV 90 (79-97) fl MCH 30 (28-32) pg MCHC 33 (30-34) % RDW 14.0 (13.2-15.2) % Plt Count 147 (140-440) K/mm3 [place] % (Auto) Thrill Performer Add Manual Diff Complete Total Counted 100 Seg Neuts % (Manual) 64.0 (40.0-70.0) % Band Neutrophils % 2.0 % Lymphocytes % (Manual) 12.0 L (13.4-35.0) % Monocytes % (Manual) 19.0 H (0.0-7.3) % Eosinophils % (Manual) 3.0 (0.0-4.3) % Nucleated RBC % Not Reportable Seg Neutrophils # Man 7.7 (1.8-7.7) K/mm3 Band Neutrophils # 0.2 K/mm3 Lymphocytes # (Manual) 1.4 (1.2-5.4) K/mm3 Abs React Lymphs (Man) 0.0 K/mm3 Monocytes # (Manual) 2.3 H (0.0-0.8) K/mm3 Eosinophils # (Manual) 0.4 (0.0-0.4) K/mm3 Basophils # (Manual) 0.0 (0.0-0.1) K/mm3 Metamyelocytes # 0.0 K/mm3 Myelocytes # 0.0 K/mm3 Promyelocytes # 0.0 K/mm3 Blast Cells # 0.0 K/mm3 WBC Morphology Not Reportable Hypersegmented Neuts Not Reportable Hyposegmented Neuts Not Reportable Hypogranular Neuts Not Reportable Smudge Cells Not Reportable Toxic Granulation Not Reportable Toxic Vacuolation Not Reportable Dohle Bodies Not Reportable Pelger-Huet Anomaly Not Reportable Juanito Rods Not Reportable Platelet Estimate Consistent w auto Clumped Platelets Not Reportable Plt Clumps, EDTA Not Reportable Large Platelets Few Giant Platelets Not Reportable Platelet Satelliting Not Reportable Plt Morphology Comment Not Reportable RBC Morphology Normal Dimorphic RBCs Not Reportable Polychromasia Not Reportable Hypochromasia Not Reportable Poikilocytosis Not Reportable Anisocytosis Not Reportable Microcytosis Not Reportable Macrocytosis Not Reportable Spherocytes Not Reportable Pappenheimer Bodies Not Reportable Sickle Cells Not Reportable Target Cells Not Reportable Tear Drop Cells Not Reportable Ovalocytes Not Reportable Helmet Cells Not Reportable Encarnacion-Gloster Bodies Not Reportable [place] Rings Not Reportable [place] Cells Not Reportable Bite Cells Not Reportable Crenated Cell Not Reportable Elliptocytes Not Reportable Acanthocytes (Spur) Not Reportable Rouleaux Not Reportable Hemoglobin C Crystals Not Reportable Schistocytes Not Reportable Malaria parasites Not Reportable Anm Bodies Not Reportable Hem Pathologist Commnt No Sodium 135 L (137-145) mmol/L Potassium 3.6 (3.6-5.0) mmol/L Chloride 99.5 (98-107) mmol/L Carbon Dioxide 22 (22-30) mmol/L Anion Gap 17 mmol/L BUN 11 (7-17) mg/dL Creatinine 0.9 (0.6-1.2) mg/dL Estimated GFR > 60 ml/min BUN/Creatinine Ratio 12 % Glucose 87 (65-100) mg/dL Calcium 9.0 (8.4-10.2) mg/dL Total Bilirubin 0.40 (0.1-1.2) mg/dL AST 18 (5-40) units/L ALT 12 (7-56) units/L Alkaline Phosphatase 76 (35-129) units/L Total Protein 7.4 (6.3-8.2) g/dL Albumin 4.2 (3.9-5) g/dL Albumin/Globulin Ratio 1.3 % HCG, Qual (Negative) Salicylates < 0.3 L (2.8-20.0) mg/dL Acetaminophen (10.0-30.0) ug/mL Plasma/Serum Alcohol (0-0.07) % 01/07/21 01/07/21 01/07/21 Range/Units 00:32 00:32 00:32 WBC (4.5-11.0) K/mm3 RBC (3.65-5.03) M/mm3 Hgb (10.1-14.3) gm/dl Hct (30.3-42.9) % MCV (79-97) fl MCH (28-32) pg MCHC (30-34) % RDW (13.2-15.2) % Plt Count (140-440) K/mm3 [place] % (Auto) Add Manual Diff Total Counted Seg Neuts % (Manual) (40.0-70.0) % Band Neutrophils % % Lymphocytes % (Manual) (13.4-35.0) % Monocytes % (Manual) (0.0-7.3) % Eosinophils % (Manual) (0.0-4.3) % Nucleated RBC % Seg Neutrophils # Man (1.8-7.7) K/mm3 Band Neutrophils # K/mm3 Lymphocytes # (Manual) (1.2-5.4) K/mm3 Abs React Lymphs (Man) K/mm3 Monocytes # (Manual) (0.0-0.8) K/mm3 Eosinophils # (Manual) (0.0-0.4) K/mm3 Basophils # (Manual) (0.0-0.1) K/mm3 Metamyelocytes # K/mm3 Myelocytes # K/mm3 Promyelocytes # K/mm3 Blast Cells # K/mm3 WBC Morphology Hypersegmented Neuts Hyposegmented Neuts Hypogranular Neuts Smudge Cells Toxic Granulation Toxic Vacuolation Dohle Bodies Pelger-Huet Anomaly Juanito Rods Platelet Estimate Clumped Platelets Plt Clumps, EDTA Large Platelets Giant Platelets Platelet Satelliting Plt Morphology Comment RBC Morphology Dimorphic RBCs Polychromasia Hypochromasia Poikilocytosis Anisocytosis Microcytosis Macrocytosis Spherocytes Pappenheimer Bodies Sickle Cells Target Cells Tear Drop Cells Ovalocytes Helmet Cells Encarnacion-Gloster Bodies [place] Rings Rishi Cells Bite Cells Crenated Cell Elliptocytes Acanthocytes (Spur) Rouleaux Hemoglobin C Crystals Schistocytes Malaria parasites Nam Bodies Hem Pathologist Commnt Sodium (137-145) mmol/L Potassium (3.6-5.0) mmol/L Chloride (98-107) mmol/L Carbon Dioxide (22-30) mmol/L Anion Gap mmol/L BUN (7-17) mg/dL Creatinine (0.6-1.2) mg/dL Estimated GFR ml/min BUN/Creatinine Ratio % Glucose (65-100) mg/dL Calcium (8.4-10.2) mg/dL Total Bilirubin (0.1-1.2) mg/dL AST (5-40) units/L ALT (7-56) units/L Alkaline Phosphatase (35-129) units/L Total Protein (6.3-8.2) g/dL Albumin (3.9-5) g/dL Albumin/Globulin Ratio % HCG, Qual Negative (Negative) Salicylates (2.8-20.0) mg/dL Acetaminophen 5.0 L (10.0-30.0) ug/mL Plasma/Serum Alcohol < 0.01 (0-0.07) % 13: 27; 01/07/2021 Valproic acid level not supratherapeutic or toxic. The patient remains medically suitable for psychiatric consultation, placement and disposition at this time. 18: 00; 01/07/2021 [id number] evaluation be performed. Patient was taken out of seclusion. Nursing team reports that patient became agitated, belligerent and verbally combative. The patient did not respond to verbal techniques, or show of force. She required repeat placement into seclusion. I have evaluated the patient. She is awake, and speaking energetically, protecting her airway, and moving 4 extremities. This patient does have as needed medications ordered. Nursing team is encouraged to administer as needed medications.
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
[2021-01-07] MEDS: BENZTROPINE 0.5 MG TAB PO SCH ×2 (15:02→22:50)
[2021-01-07] MEDS: DIVALPROEX DR 250 MG TAB PO SCH ×2 (15:03→22:50)
[2021-01-07 17:26] LABS: Bilirubin,Urine NEG (Negative); Blood,Urine NEG (Negative); Color,Urine Yellow (Yellow); Mucus,Urine 2+ /HPF
[2021-01-07 17:31] LABS: Amphetamine Screen,Urine PRESUMPTIVE NEGATIVE; Benzodiazepines Screen,Urine PRESUMPTIVE NEGATIVE; Cannabinoid Screen,Urine PRESUMPTIVE NEGATIVE; Cocaine Screen,Urine PRESUMPTIVE NEGATIVE; Methadone Screen,Urine PRESUMPTIVE NEGATIVE; Opiate Screen,Urine PRESUMPTIVE NEGATIVE
[2021-01-08] MEDS: BENZTROPINE 0.5 MG TAB PO SCH ×2 (10:30→22:20)
[2021-01-08] MEDS: DIVALPROEX DR 250 MG TAB PO SCH ×2 (10:30→22:20)
--- NOTE | 2021-01-08 10:52 | Event Note ---
Date: 01/08/21 Patient seen and examined. [id number] evaluation performed. Patient required placement in seclusion. Patient loud, yelling, aggressive, hitting the wall. Patient does not respond to verbal techniques or show of force. On my assessment, the patient is awake, breathing spontaneously, moving 4 extremities. She has pressured speech, and is obviously psychotic. Patient deemed medically suitable for psychiatric placement during her initial ER evaluation. She remains medically suitable for psychiatric disposition, and placement at this time. Psychiatric recommendations are appreciated. Vital Signs 01/06/21 01/07/21 01/07/21 23:45 00:30 03:00 Temperature 100.1 F H 99.8 F H Pulse Rate 105 H 95 H Respiratory 19 20 20 Rate Blood Pressure 120/79 122/80 [Right] O2 Sat by Pulse 98 98 99 Oximetry 01/07/21 01/07/21 01/08/21 09:26 09:32 02:29 Temperature 98.3 F 98.6 F Pulse Rate 82 85 Respiratory 20 18 Rate Blood Pressure 122/80 111/78 [Right] O2 Sat by Pulse 100 100 97 Oximetry 01/08/21 01/08/21 04:19 08:02 Temperature 98.0 F Pulse Rate 70 Respiratory 18 18 Rate Blood Pressure 129/68 [Right] O2 Sat by Pulse 97 98 Oximetry Lab Results 01/07/21 01/07/21 01/07/21 Range/Units 00:32 00:32 00:32 WBC 12.0 H (4.5-11.0) K/mm3 RBC 4.39 (3.65-5.03) M/mm3 Hgb 13.0 (10.1-14.3) gm/dl Hct 39.4 (30.3-42.9) % MCV 90 (79-97) fl MCH 30 (28-32) pg MCHC 33 (30-34) % RDW 14.0 (13.2-15.2) % Plt Count 147 (140-440) K/mm3 [place] % (Auto) Seo Associate Add Manual Diff Complete Total Counted 100 Seg Neuts % (Manual) 64.0 (40.0-70.0) % Band Neutrophils % 2.0 % Lymphocytes % (Manual) 12.0 L (13.4-35.0) % Monocytes % (Manual) 19.0 H (0.0-7.3) % Eosinophils % (Manual) 3.0 (0.0-4.3) % Nucleated RBC % Not Reportable Seg Neutrophils # Man 7.7 (1.8-7.7) K/mm3 Band Neutrophils # 0.2 K/mm3 Lymphocytes # (Manual) 1.4 (1.2-5.4) K/mm3 Abs React Lymphs (Man) 0.0 K/mm3 Monocytes # (Manual) 2.3 H (0.0-0.8) K/mm3 Eosinophils # (Manual) 0.4 (0.0-0.4) K/mm3 Basophils # (Manual) 0.0 (0.0-0.1) K/mm3 Metamyelocytes # 0.0 K/mm3 Myelocytes # 0.0 K/mm3 Promyelocytes # 0.0 K/mm3 Blast Cells # 0.0 K/mm3 WBC Morphology Not Reportable Hypersegmented Neuts Not Reportable Hyposegmented Neuts Not Reportable Hypogranular Neuts Not Reportable Smudge Cells Not Reportable Toxic Granulation Not Reportable Toxic Vacuolation Not Reportable Dohle Bodies Not Reportable Pelger-Huet Anomaly Not Reportable Juanito Rods Not Reportable Platelet Estimate Consistent w auto Clumped Platelets Not Reportable Plt Clumps, EDTA Not Reportable Large Platelets Few Giant Platelets Not Reportable Platelet Satelliting Not Reportable Plt Morphology Comment Not Reportable RBC Morphology Normal Dimorphic RBCs Not Reportable Polychromasia Not Reportable Hypochromasia Not Reportable Poikilocytosis Not Reportable Anisocytosis Not Reportable Microcytosis Not Reportable Macrocytosis Not Reportable Spherocytes Not Reportable Pappenheimer Bodies Not Reportable Sickle Cells Not Reportable Target Cells Not Reportable Tear Drop Cells Not Reportable Ovalocytes Not Reportable Helmet Cells Not Reportable [place]arn[place]-Hortense Bodies Not Reportable [place] Rings Not Reportable [place] Cells Not Reportable Bite Cells Not Reportable Crenated Cell Not Reportable Elliptocytes Not Reportable Acanthocytes (Spur) Not Reportable Rouleaux Not Reportable Hemoglobin C Crystals Not Reportable Schistocytes Not Reportable Malaria parasites Not Reportable Nam Bodies Not Reportable Hem Pathologist Commnt No Sodium 135 L (137-145) mmol/L Potassium 3.6 (3.6-5.0) mmol/L Chloride 99.5 (98-107) mmol/L Carbon Dioxide 22 (22-30) mmol/L Anion Gap 17 mmol/L BUN 11 (7-17) mg/dL Creatinine 0.9 (0.6-1.2) mg/dL Estimated GFR > 60 ml/min BUN/Creatinine Ratio 12 % Glucose 87 (65-100) mg/dL Calcium 9.0 (8.4-10.2) mg/dL Total Bilirubin 0.40 (0.1-1.2) mg/dL AST 18 (5-40) units/L ALT 12 (7-56) units/L Alkaline Phosphatase 76 (35-129) units/L Total Protein 7.4 (6.3-8.2) g/dL Albumin 4.2 (3.9-5) g/dL Albumin/Globulin Ratio 1.3 % HCG, Qual (Negative) Urine Color (Yellow) Urine Turbidity (Clear) Urine pH (5.0-7.0) Ur Specific [place] (1.003-1.030) Urine Protein (Negative) mg/dL Urine Glucose (UA) (Negative) mg/dL Urine Ketones (Negative) mg/dL Urine Blood (Negative) Urine Nitrite (Negative) Urine Bilirubin (Negative) Urine Urobilinogen (<2.0) mg/dL Ur Leukocyte Esterase (Negative) Urine WBC (Auto) (0.0-6.0) /HPF Urine RBC (Auto) (0.0-6.0) /HPF U Epithel Cells (Auto) (0-13.0) /HPF Urine Mucus /HPF Salicylates < 0.3 L (2.8-20.0) mg/dL Urine Opiates Screen Urine Methadone Screen Acetaminophen (10.0-30.0) ug/mL Ur Barbiturates Screen Valproic Acid (50-100) ug/mL Ur Phencyclidine Scrn Ur Amphetamines Screen U Benzodiazepines Scrn Urine Cocaine Screen U Marijuana (THC) Screen Drugs of Abuse Note Plasma/Serum Alcohol (0-0.07) % Coronavirus (PCR) (Negative) 01/07/21 01/07/21 01/07/21 Range/Units 00:32 00:32 00:32 WBC (4.5-11.0) K/mm3 RBC (3.65-5.03) M/mm3 Hgb (10.1-14.3) gm/dl Hct (30.3-42.9) % MCV (79-97) fl MCH (28-32) pg MCHC (30-34) % RDW (13.2-15.2) % Plt Count (140-440) K/mm3 [place] % (Auto) Add Manual Diff Total Counted Seg Neuts % (Manual) (40.0-70.0) % Band Neutrophils % % Lymphocytes % (Manual) (13.4-35.0) % Monocytes % (Manual) (0.0-7.3) % Eosinophils % (Manual) (0.0-4.3) % Nucleated RBC % Seg Neutrophils # Man (1.8-7.7) K/mm3 Band Neutrophils # K/mm3 Lymphocytes # (Manual) (1.2-5.4) K/mm3 Abs React Lymphs (Man) K/mm3 Monocytes # (Manual) (0.0-0.8) K/mm3 Eosinophils # (Manual) (0.0-0.4) K/mm3 Basophils # (Manual) (0.0-0.1) K/mm3 Metamyelocytes # K/mm3 Myelocytes # K/mm3 Promyelocytes # K/mm3 Blast Cells # K/mm3 WBC Morphology Hypersegmented Neuts Hyposegmented Neuts Hypogranular Neuts Smudge Cells Toxic Granulation Toxic Vacuolation Dohle Bodies Pelger-Huet Anomaly Juanito Rods Platelet Estimate Clumped Platelets Plt Clumps, EDTA Large Platelets Giant Platelets Platelet Satelliting Plt Morphology Comment RBC Morphology Dimorphic RBCs Polychromasia Hypochromasia Poikilocytosis Anisocytosis Microcytosis Macrocytosis Spherocytes Pappenheimer Bodies Sickle Cells Target Cells Tear Drop Cells Ovalocytes Helmet Cells Encarn[place]-Hortense Bodies [place] Rings Rishi Cells Bite Cells Crenated Cell Elliptocytes Acanthocytes (Spur) Rouleaux Hemoglobin C Crystals Schistocytes Malaria parasites Nam Bodies Hem Pathologist Commnt Sodium (137-145) mmol/L Potassium (3.6-5.0) mmol/L Chloride (98-107) mmol/L Carbon Dioxide (22-30) mmol/L Anion Gap mmol/L BUN (7-17) mg/dL Creatinine (0.6-1.2) mg/dL Estimated GFR ml/min BUN/Creatinine Ratio % Glucose (65-100) mg/dL Calcium (8.4-10.2) mg/dL Total Bilirubin (0.1-1.2) mg/dL AST (5-40) units/L ALT (7-56) units/L Alkaline Phosphatase (35-129) units/L Total Protein (6.3-8.2) g/dL Albumin (3.9-5) g/dL Albumin/Globulin Ratio % HCG, Qual Negative (Negative) Urine Color (Yellow) Urine Turbidity (Clear) Urine pH (5.0-7.0) Ur Specific [place] (1.003-1.030) Urine Protein (Negative) mg/dL Urine Glucose (UA) (Negative) mg/dL Urine Ketones (Negative) mg/dL Urine Blood (Negative) Urine Nitrite (Negative) Urine Bilirubin (Negative) Urine Urobilinogen (<2.0) mg/dL Ur Leukocyte Esterase (Negative) Urine WBC (Auto) (0.0-6.0) /HPF Urine RBC (Auto) (0.0-6.0) /HPF U Epithel Cells (Auto) (0-13.0) /HPF Urine Mucus /HPF Salicylates (2.8-20.0) mg/dL Urine Opiates Screen Urine Methadone Screen Acetaminophen 5.0 L (10.0-30.0) ug/mL Ur Barbiturates Screen Valproic Acid (50-100) ug/mL Ur Phencyclidine Scrn Ur Amphetamines Screen U Benzodiazepines Scrn Urine Cocaine Screen U Marijuana (THC) Screen Drugs of Abuse Note Plasma/Serum Alcohol < 0.01 (0-0.07) % Coronavirus (PCR) (Negative) 01/07/21 01/07/21 01/07/21 Range/Units 00:32 09:25 Unknown WBC (4.5-11.0) K/mm3 RBC (3.65-5.03) M/mm3 Hgb (10.1-14.3) gm/dl Hct (30.3-42.9) % MCV (79-97) fl MCH (28-32) pg MCHC (30-34) % RDW (13.2-15.2) % Plt Count (140-440) K/mm3 [place] % (Auto) Add Manual Diff Total Counted Seg Neuts % (Manual) (40.0-70.0) % Band Neutrophils % % Lymphocytes % (Manual) (13.4-35.0) % Monocytes % (Manual) (0.0-7.3) % Eosinophils % (Manual) (0.0-4.3) % Nucleated RBC % Seg Neutrophils # Man (1.8-7.7) K/mm3 Band Neutrophils # K/mm3 Lymphocytes # (Manual) (1.2-5.4) K/mm3 Abs React Lymphs (Man) K/mm3 Monocytes # (Manual) (0.0-0.8) K/mm3 Eosinophils # (Manual) (0.0-0.4) K/mm3 Basophils # (Manual) (0.0-0.1) K/mm3 Metamyelocytes # K/mm3 Myelocytes # K/mm3 Promyelocytes # K/mm3 Blast Cells # K/mm3 WBC Morphology Hypersegmented Neuts Hyposegmented Neuts Hypogranular Neuts Smudge Cells Toxic Granulation Toxic Vacuolation Dohle Bodies Pelger-Huet Anomaly Juanito Rods Platelet Estimate Clumped Platelets Plt Clumps, EDTA Large Platelets Giant Platelets Platelet Satelliting Plt Morphology Comment RBC Morphology Dimorphic RBCs Polychromasia Hypochromasia Poikilocytosis Anisocytosis Microcytosis Macrocytosis Spherocytes Pappenheimer Bodies Sickle Cells Target Cells Tear Drop Cells Ovalocytes Helmet Cells Encarn[place]-Hortense Bodies [place] Rings Rishi Cells Bite Cells Crenated Cell Elliptocytes Acanthocytes (Spur) Rouleaux Hemoglobin C Crystals Schistocytes Malaria parasites Nam Bodies Hem Pathologist Commnt Sodium (137-145) mmol/L Potassium (3.6-5.0) mmol/L Chloride (98-107) mmol/L Carbon Dioxide (22-30) mmol/L Anion Gap mmol/L BUN (7-17) mg/dL Creatinine (0.6-1.2) mg/dL Estimated GFR ml/min BUN/Creatinine Ratio % Glucose (65-100) mg/dL Calcium (8.4-10.2) mg/dL Total Bilirubin (0.1-1.2) mg/dL AST (5-40) units/L ALT (7-56) units/L Alkaline Phosphatase (35-129) units/L Total Protein (6.3-8.2) g/dL Albumin (3.9-5) g/dL Albumin/Globulin Ratio % HCG, Qual (Negative) Urine Color Yellow (Yellow) Urine Turbidity Slightly-cloudy (Clear) Urine pH 5.0 (5.0-7.0) Ur Specific [place] 1.026 (1.003-1.030) Urine Protein 100 mg/dl (Negative) mg/dL Urine Glucose (UA) Neg (Negative) mg/dL Urine Ketones Neg (Negative) mg/dL Urine Blood Neg (Negative) Urine Nitrite Neg (Negative) Urine Bilirubin Neg (Negative) Urine Urobilinogen 2.0 (<2.0) mg/dL Ur Leukocyte Esterase Sm (Negative) Urine WBC (Auto) 4.0 (0.0-6.0) /HPF Urine RBC (Auto) 8.0 (0.0-6.0) /HPF U Epithel Cells (Auto) 13.0 (0-13.0) /HPF Urine Mucus 2+ /HPF Salicylates (2.8-20.0) mg/dL Urine Opiates Screen Urine Methadone Screen Acetaminophen (10.0-30.0) ug/mL Ur Barbiturates Screen Valproic Acid 17.9 L (50-100) ug/mL Ur Phencyclidine Scrn Ur Amphetamines Screen U Benzodiazepines Scrn Urine Cocaine Screen U Marijuana (THC) Screen Drugs of Abuse Note Plasma/Serum Alcohol (0-0.07) % Coronavirus (PCR) Negative (Negative) 01/07/21 Range/Units Unknown WBC (4.5-11.0) K/mm3 RBC (3.65-5.03) M/mm3 Hgb (10.1-14.3) gm/dl Hct (30.3-42.9) % MCV (79-97) fl MCH (28-32) pg MCHC (30-34) % RDW (13.2-15.2) % Plt Count (140-440) K/mm3 [place] % (Auto) Add Manual Diff Total Counted Seg Neuts % (Manual) (40.0-70.0) % Band Neutrophils % % Lymphocytes % (Manual) (13.4-35.0) % Monocytes % (Manual) (0.0-7.3) % Eosinophils % (Manual) (0.0-4.3) % Nucleated RBC % Seg Neutrophils # Man (1.8-7.7) K/mm3 Band Neutrophils # K/mm3 Lymphocytes # (Manual) (1.2-5.4) K/mm3 Abs React Lymphs (Man) K/mm3 Monocytes # (Manual) (0.0-0.8) K/mm3 Eosinophils # (Manual) (0.0-0.4) K/mm3 Basophils # (Manual) (0.0-0.1) K/mm3 Metamyelocytes # K/mm3 Myelocytes # K/mm3 Promyelocytes # K/mm3 Blast Cells # K/mm3 WBC Morphology Hypersegmented Neuts Hyposegmented Neuts Hypogranular Neuts Smudge Cells Toxic Granulation Toxic Vacuolation Dohle Bodies Pelger-Huet Anomaly Juanito Rods Platelet Estimate Clumped Platelets Plt Clumps, EDTA Large Platelets Giant Platelets Platelet Satelliting Plt Morphology Comment RBC Morphology Dimorphic RBCs Polychromasia Hypochromasia Poikilocytosis Anisocytosis Microcytosis Macrocytosis Spherocytes Pappenheimer Bodies Sickle Cells Target Cells Tear Drop Cells Ovalocytes Helmet Cells Encarnacion-Hortense Bodies [place] Rings [place] Cells Bite Cells Crenated Cell Elliptocytes Acanthocytes (Spur) Rouleaux Hemoglobin C Crystals Schistocytes Malaria parasites Nam Bodies Hem Pathologist Commnt Sodium (137-145) mmol/L Potassium (3.6-5.0) mmol/L Chloride (98-107) mmol/L Carbon Dioxide (22-30) mmol/L Anion Gap mmol/L BUN (7-17) mg/dL Creatinine (0.6-1.2) mg/dL Estimated GFR ml/min BUN/Creatinine Ratio % Glucose (65-100) mg/dL Calcium (8.4-10.2) mg/dL Total Bilirubin (0.1-1.2) mg/dL AST (5-40) units/L ALT (7-56) units/L Alkaline Phosphatase (35-129) units/L Total Protein (6.3-8.2) g/dL Albumin (3.9-5) g/dL Albumin/Globulin Ratio % HCG, Qual (Negative) Urine Color (Yellow) Urine Turbidity (Clear) Urine pH (5.0-7.0) Ur Specific [place] (1.003-1.030) Urine Protein (Negative) mg/dL Urine Glucose (UA) (Negative) mg/dL Urine Ketones (Negative) mg/dL Urine Blood (Negative) Urine Nitrite (Negative) Urine Bilirubin (Negative) Urine Urobilinogen (<2.0) mg/dL Ur Leukocyte Esterase (Negative) Urine WBC (Auto) (0.0-6.0) /HPF Urine RBC (Auto) (0.0-6.0) /HPF U Epithel Cells (Auto) (0-13.0) /HPF Urine Mucus /HPF Salicylates (2.8-20.0) mg/dL Urine Opiates Screen Presumptive negative Urine Methadone Screen Presumptive negative Acetaminophen (10.0-30.0) ug/mL Ur Barbiturates Screen Presumptive negative Valproic Acid (50-100) ug/mL Ur Phencyclidine Scrn Presumptive negative Ur Amphetamines Screen Presumptive negative U Benzodiazepines Scrn Presumptive negative Urine Cocaine Screen Presumptive negative U Marijuana (THC) Screen Presumptive negative Drugs of Abuse Note Disclamer Plasma/Serum Alcohol (0-0.07) % Coronavirus (PCR) (Negative)
--- NOTE | 2021-01-08 11:48 | Progress Note ---
Subjective - Reason for Consult Consult date: 01/08/21 Reason for consult: mental health evaluation - Chief Complaint Chief complaint: The patient was seen this morning,she continues to present with intrusive behavior, and pressured speech. REVIEW OF SYSTEMS Constitutional: Negative for weight loss ENT: Negative for stridor Respiratory: Negative for cough or hemoptysis All other systems reviewed and are negative MENTAL STATUS EXAMINATION General Appearance and Behavior: Age appropriate, good hygiene, wearing appropriate clothes. calm, cooperative Cooperation: Cooperative Psychomotor Behavior: Psychomotor normal Mood: Confused Affect and affective range: congruent with stated mood/ labile Thought Process: Disorganized Thought Content: Not suicidal Speech: normal tone and pace Suicidal Ideation:Denies Homicidal Ideation: Denies Hallucinations: Unknown Delusions: None elicited Impulse Control: normal Insight and Judgment: Limited Memory: Limited Attention: attentive Orientation: a/o x 3 Assessment (1)Schizophrenia Current Visit: Yes Status: Acute Treatment Plan continue 1013 Continue Zyprexa 10mg po daily Continue Depakote 250 mg po BID Continue Cogentin 0.5mg po BID Continue previously prescribed medications and follow up with outpatient psychiatry in 7 to 10 days upon discharge. The patient to comply with previously prescribed medications Risks, benefits and alternatives of medications discussed with the patient, questions answered and consent obtained from patient. PSYCHOTHERAPY: Supportive psychotherapy provided MEDICAL: Per primary team DELIRIUM PRECAUTIONS: Please re-orient patient frequently, keep lights on during the day, and minimize benzodiazepines and opiates as these medications could worsen patient's confusion. 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 The sitter to give the patient resources and safety plan The patient to comply with treatment regimen and abstain from all illicit drug use. FOLLOW-UP: Will follow. Case staffed with Dr. Srivastava Medications and Allergies Medications and Allergies Mental Status Exam - Vital signs Last Vital Signs Temp 98.0 F 01/08/21 08:02 Pulse 70 01/08/21 08:02 Resp 18 01/08/21 08:02 BP 129/68 01/08/21 08:02 Pulse Ox 98 01/08/21 08:02
[2021-01-09] MEDS: LORazepam 2 MG/ML VIAL IM PRN ×2 (06:00→16:48)
[2021-01-09] MEDS: HALOPERIDOL LACTATE 5 MG/1 ML INJ IM PRN ×2 (06:00→13:55)
--- NOTE | 2021-01-09 08:14 | Progress Note ---
Subjective - Reason for Consult Consult date: 01/09/21 Reason for consult: Mental health evaluation - Chief Complaint Chief complaint: The patient was seen this morning, she continues to be disorganized. REVIEW OF SYSTEMS Constitutional: Negative for weight loss ENT: Negative for stridor Respiratory: Negative for cough or hemoptysis All other systems reviewed and are negative MENTAL STATUS EXAMINATION General Appearance and Behavior: Age appropriate, good hygiene, wearing appropriate clothes. calm, cooperative Cooperation: Cooperative Psychomotor Behavior: Psychomotor normal Mood: Confused Affect and affective range: congruent with stated mood/ labile Thought Process: Disorganized Thought Content: Not suicidal Speech: normal tone and pace Suicidal Ideation:Denies Homicidal Ideation: Denies Hallucinations: Unknown Delusions: None elicited Impulse Control: normal Insight and Judgment: Limited Memory: Limited Attention: attentive Orientation: a/o x 3 Assessment (1)Schizophrenia Current Visit: Yes Status: Acute Treatment Plan continue 1013 Continue Zyprexa 10mg po daily Continue Depakote 250 mg po BID Continue Cogentin 0.5mg po BID Continue previously prescribed medications and follow up with outpatient psychiatry in 7 to 10 days upon discharge. The patient to comply with previously prescribed medications Risks, benefits and alternatives of medications discussed with the patient, questions answered and consent obtained from patient. PSYCHOTHERAPY: Supportive psychotherapy provided MEDICAL: Per primary team DELIRIUM PRECAUTIONS: Please re-orient patient frequently, keep lights on during the day, and minimize benzodiazepines and opiates as these medications could worsen patient's confusion. 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 The sitter to give the patient resources and safety plan The patient to comply with treatment regimen and abstain from all illicit drug use. FOLLOW-UP: Will follow. Case staffed with Dr. Srivastava Medications and Allergies Medications and Allergies Mental Status Exam - Vital signs Last Vital Signs Temp 98.0 F 01/08/21 08:02 Pulse 70 01/08/21 08:02 Resp 18 01/08/21 08:02 BP 129/68 01/08/21 08:02 Pulse Ox 98 01/08/21 12:00
--- NOTE | 2021-01-09 10:40 | Event Note ---
Date: 01/09/21 S: Patient reportedly had aggressive overnight and made a hole in the wall by striking it with a chair. Patient was subsequently placed in seclusion. O: Vital Signs - 24 hr 01/09/21 00:45 Temperature 98 F Pulse Rate 74 Respiratory 16 Rate Blood Pressure 118/74 [Right] O2 Sat by Pulse 98 Oximetry A: Schizophrenia PE: Continue 1013, awaiting inpatient psych placement
[2021-01-09] MEDS: DIVALPROEX DR 250 MG TAB PO SCH ×2 (10:59→22:38)
[2021-01-09] MEDS: BENZTROPINE 0.5 MG TAB PO SCH ×2 (10:59→22:38)
[2021-01-10] MEDS: LORazepam 2 MG/ML VIAL IM PRN (09:00)
[2021-01-10] MEDS: DIVALPROEX DR 250 MG TAB PO SCH ×2 (10:52→22:09)
[2021-01-10] MEDS: BENZTROPINE 0.5 MG TAB PO SCH ×2 (10:52→22:09)
--- NOTE | 2021-01-10 11:41 | Event Note ---
Date: 01/10/21 S: Per nurse, patient remians somewhat agitated. O: Patient agitated, aggressive, yelling in room. A: Schizophrenia P: 1013; awaiting inpatient psychiatric placement
--- NOTE | 2021-01-10 14:14 | Consultation ---
History of Present Illness - Reason for Consult Consult date: 01/10/21 Reason for consult: mental health evaluation - Chief Complaint Chief complaint: The patient was seen this morning, she continues to be disorganized. REVIEW OF SYSTEMS Constitutional: Negative for weight loss ENT: Negative for stridor Respiratory: Negative for cough or hemoptysis All other systems reviewed and are negative MENTAL STATUS EXAMINATION General Appearance and Behavior: Age appropriate, good hygiene, wearing appropriate clothes. calm, cooperative Cooperation: Cooperative Psychomotor Behavior: Psychomotor normal Mood: Confused Affect and affective range: congruent with stated mood/ labile Thought Process: Disorganized Thought Content: Not suicidal Speech: normal tone and pace Suicidal Ideation:Denies Homicidal Ideation: Denies Hallucinations: Unknown Delusions: None elicited Impulse Control: normal Insight and Judgment: Limited Memory: Limited Attention: attentive Orientation: a/o x 3 Assessment (1)Schizophrenia Current Visit: Yes Status: Acute Treatment Plan continue 1013 Continue Zyprexa 10mg po daily Continue Depakote 250 mg po BID Continue Cogentin 0.5mg po BID Continue previously prescribed medications and follow up with outpatient psychiatry in 7 to 10 days upon discharge. The patient to comply with previously prescribed medications Risks, benefits and alternatives of medications discussed with the patient, questions answered and consent obtained from patient. PSYCHOTHERAPY: Supportive psychotherapy provided MEDICAL: Per primary team DELIRIUM PRECAUTIONS: Please re-orient patient frequently, keep lights on during the day, and minimize benzodiazepines and opiates as these medications could worsen patient's confusion. 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 The sitter to give the patient resources and safety plan The patient to comply with treatment regimen and abstain from all illicit drug use. FOLLOW-UP: Will follow. Case staffed with Dr. Srivastava Medications and Allergies Medications and Allergies Medications and Allergies Allergies Allergy/AdvReac Type Severity Reaction Status Date / Time No Known Allergies Allergy Unverified 02/28/16 12:23 Home Medications Medication Instructions Recorded Confirmed Last Taken Type Benztropine [Cogentin] 2 mg PO QHS 02/28/16 06/05/19 06/03/[address] [DepaKOTE DR] 250 mg PO TID 06/05/19 06/05/19 06/03/19 History QUEtiapine [SEROquel] 100 mg PO DAILY 06/05/19 06/05/19 06/03/19 History QUEtiapine [SEROquel] 200 mg PO HS 06/05/19 06/05/19 06/03/19 History Active Meds: Active Medications Benztropine Mesylate (Benztropine 0.5 Mg Tab) 0.5 mg PO BID [facility] Last Admin: 01/10/21 10:52 Dose: 0.5 mg Documented by: Diphenhydramine HCl (Diphenhydramine 50 Mg/Ml Vial) 50 mg IM Q6H PRN PRN Reason: Agitation Last Admin: 01/07/21 20:32 Dose: 50 mg Documented by: Divalproex Sodium (Divalproex Dr 250 Mg Tab) 250 mg PO BID [facility] Last Admin: 01/10/21 10:52 Dose: 250 mg Documented by: Haloperidol Lactate (Haloperidol Lactate 5 Mg/1 Ml Inj) 10 mg IM Q8H PRN PRN Reason: Agitation Last Admin: 01/09/21 13:55 Dose: 10 mg Documented by: Lorazepam (Lorazepam 2 Mg/Ml Vial) 2 mg IM Q8H PRN PRN Reason: Agitation Last Admin: 01/10/21 09:00 Dose: 2 mg Documented by: Olanzapine (Olanzapine 10 Mg Tab) 10 mg PO DAILY [facility] Last Admin: 01/10/21 10:52 Dose: 10 mg Documented by: Mental Status Exam - Vital signs Last Vital Signs Temp 98 F 01/09/21 00:45 Pulse 86 01/09/21 21:59 Resp 18 01/09/21 21:59 BP 108/73 01/09/21 21:59 Pulse Ox 99 01/10/21 11:13 Results Result Diagrams: 01/07/21 00:32 01/07/21 00:32 All other labs normal.
[2021-01-10] MEDS: HALOPERIDOL LACTATE 5 MG/1 ML INJ IM PRN (17:46)
[2021-01-11] MEDS ORDERED: ACETAMINOPHEN 500 MG TAB PO ONE (10:16)
--- NOTE | 2021-01-11 10:16 | Emergency Department Report ---
Blank Doc - Documentation Documentation: Patient is resting. There is no evidence of medical decompensation. She does not appear to be toxic. Labs have been reviewed. We are currently awaiting psychiatric disposition. We will continue to provide supportive care until psychiatric services can arrange a safe location and transfer.
[2021-01-11] MEDS: DIVALPROEX DR 250 MG TAB PO SCH ×2 (10:34→22:05)
[2021-01-11] MEDS: BENZTROPINE 0.5 MG TAB PO SCH ×2 (10:34→22:05)
[2021-01-11] MEDS: diphenhydrAMINE 50 MG/ML VIAL IM PRN (11:24)
[2021-01-11] MEDS: LORazepam 2 MG/ML VIAL IM PRN (11:45)
--- NOTE | 2021-01-12 07:41 | Event Note ---
Date: 01/12/21 [id number]-[id number] evaluation performed. Patient currently in room 13, in seclusion. She was placed there for aggressive behavior, not responding to verbal techniques, show of force, or de-escalation techniques. On my assessment, she is awake, agitated, yelling, moving 4 extremities and protecting airway. The patient remains suitable medically for psychiatric placement, and disposition at this time. nursing, psychiatric, and prior ER documentation are reviewed and appreciated
[2021-01-12] MEDS: BENZTROPINE 0.5 MG TAB PO SCH ×2 (09:43→22:00)
[2021-01-12] MEDS: DIVALPROEX DR 250 MG TAB PO SCH ×2 (09:43→22:00)
[2021-01-12] MEDS: diphenhydrAMINE 50 MG/ML VIAL IM PRN ×2 (10:37→22:00)
[2021-01-12] MEDS: HALOPERIDOL LACTATE 5 MG/1 ML INJ IM PRN ×2 (10:38→22:00)
[2021-01-12] MEDS: LORazepam 2 MG/ML VIAL IM PRN (10:38)
--- NOTE | 2021-01-12 20:34 | Event Note ---
Awaiting placement to surgery facility. Patient is medically clear
--- NOTE | 2021-01-13 08:28 | Progress Note ---
Subjective - Reason for Consult Consult date: 01/13/21 Reason for consult: psychosis - Chief Complaint Chief complaint: The patient was seen this morning. She is in the isolation room sitting. She is trembling. Her thoughts are disorganized. She is having acute psychosis. The patient says she feels suicidal and feels like this is the afterlife. The patient then starts rambling, slightly tearful "I believe I'm already . God, is this the afterlife. Bruh I don't know what's going on." She also verbalize heaving things but would not elaborate. REVIEW OF SYSTEMS Constitutional: Negative for weight loss ENT: Negative for stridor Respiratory: Negative for cough or hemoptysis All other systems reviewed and are negative MENTAL STATUS EXAMINATION General Appearance and Behavior: Age appropriate, good hygiene, wearing appropriate clothes. calm, cooperative Cooperation: Cooperative Psychomotor Behavior: Psychomotor normal Mood: Confused Affect and affective range: congruent with stated mood/labile, tearful at times Thought Process: Disorganized Thought Content: hallucinations, delusions Speech: normal tone and pace Suicidal Ideation: Yes Homicidal Ideation: Denies Hallucinations: Auditory Delusions: Yes Impulse Control: Limited Insight and Judgment: Poor Memory: Limited Attention: distracted Orientation: a/o x 3 Assessment (1)Schizophrenia Current Visit: Yes Status: Acute Treatment Plan continue 1013 Increase Zyprexa 15mg po daily Start Klonopin 0.25mg po BID x 3 days Continue Depakote 250 mg po BID Continue Cogentin 0.5mg po BID Continue previously prescribed medications and follow up with outpatient psychiatry in 7 to 10 days upon discharge. The patient to comply with previously prescribed medications Risks, benefits and alternatives of medications discussed with the patient, questions answered and consent obtained from patient. PSYCHOTHERAPY: Supportive psychotherapy provided MEDICAL: Per primary team DELIRIUM PRECAUTIONS: Please re-orient patient frequently, keep lights on during the day, and minimize benzodiazepines and opiates as these medications could worsen patient's confusion. 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 The sitter to give the patient resources and safety plan The patient to comply with treatment regimen and abstain from all illicit drug use. FOLLOW-UP: Will follow. Case staffed with Dr. Srivastava Mental Status Exam - Vital signs Last Vital Signs Temp 98.6 F 01/13/21 06:12 Pulse 78 01/13/21 06:12 Resp 18 01/13/21 06:12 BP 128/78 01/13/21 06:12 Pulse Ox 100 01/13/21 06:12
[2021-01-13] MEDS: BENZTROPINE 0.5 MG TAB PO SCH ×2 (10:18→22:58)
[2021-01-13] MEDS: clonazePAM 0.5 MG TAB PO SCH ×2 (10:18→22:58)
[2021-01-13] MEDS: DIVALPROEX DR 250 MG TAB PO SCH ×2 (10:18→22:58)
--- NOTE | 2021-01-13 10:27 | Event Note ---
Date: 01/13/21 The patient was evaluated in the emergency department for symptoms described in the history of present illness. He/she was evaluated in the context of the global COVID-19 pandemic, which necessitated consideration that the patient might be at risk for infection with the virus that causes COVID-19. Institutional protocols and algorithms that pertain to the evaluation of patients at risk for COVID-19 are in a state of rapid change based on information released by regulatory bodies including the CDC and federal and state organizations. These policies and algorithms were followed during the patient's care in the emergency department. Please note that these policies, procedures and recommendations changed on a rapid basis. Laboratory studies, vital signs, nursing documentation, ER documentation, and psychiatric documentation are reviewed and appreciated. The patient is awake, agitated, and speaking in a hyperverbal fashion. She required placement into seclusion yet again. [id number] evaluation is performed. Patient is awake, protecting airway, and moving 4 extremities. The patient remains medically suitable for psychiatric placement and disposition. The patient was deemed medically suitable for psychiatric disposition and placement during her initial ER evaluation. The patient continues to remain medically suitable for psychiatric placement and disposition. sHe is currently pending psychiatric placement. Vital Signs 01/06/21 01/07/21 01/07/21 23:45 00:30 03:00 Temperature 100.1 F H 99.8 F H Pulse Rate 105 H 95 H Respiratory 19 20 20 Rate Blood Pressure 120/79 122/80 [Right] O2 Sat by Pulse 98 98 99 Oximetry 01/07/21 01/07/21 01/08/21 09:26 09:32 02:29 Temperature 98.3 F 98.6 F Pulse Rate 82 85 Respiratory 20 18 Rate Blood Pressure 122/80 111/78 [Right] O2 Sat by Pulse 100 100 97 Oximetry 01/08/21 01/08/21 01/08/21 04:19 08:02 12:00 Temperature 98.0 F Pulse Rate 70 Respiratory 18 18 Rate Blood Pressure 129/68 [Right] O2 Sat by Pulse 97 98 98 Oximetry 01/09/21 01/09/21 01/10/21 00:45 21:59 11:13 Temperature 98 F Pulse Rate 74 86 Respiratory 16 18 Rate Blood Pressure 118/74 108/73 [Right] O2 Sat by Pulse 98 99 99 Oximetry 01/11/21 01/11/21 01/11/21 08:05 11:00 20:07 Temperature 98.3 F 98.8 F Pulse Rate 90 90 Respiratory 20 16 Rate Blood Pressure 113/78 114/72 [Right] O2 Sat by Pulse 98 98 98 Oximetry 01/12/21 01/12/21 01/12/21 08:00 20:00 20:28 Temperature 97.9 F 98.3 F Pulse Rate 70 99 H Respiratory 18 18 Rate Blood Pressure 118/83 141/93 [Right] O2 Sat by Pulse 100 99 100 Oximetry 01/13/21 06:12 Temperature 98.6 F Pulse Rate 78 Respiratory 18 Rate Blood Pressure 128/78 [Right] O2 Sat by Pulse 100 Oximetry
[2021-01-13] MEDS: HALOPERIDOL LACTATE 5 MG/1 ML INJ IM PRN (18:53)
[2021-01-13] MEDS: diphenhydrAMINE 50 MG/ML VIAL IM PRN (18:57)
[2021-01-13] MEDS: LORazepam 2 MG/ML VIAL IM PRN (20:36)
[2021-01-13] MEDS ORDERED: ZIPRASIDONE MESYLATE 20 MG VIAL IM PRN (21:56)
--- NOTE | 2021-01-13 21:58 | Event Note ---
Date: 01/13/21 [id number] assessment performed. Patient in seclusion. Patient agitated banging head against wall. She is moving 4 extremities. She is protecting her airway. She is screaming and yelling uncontrollably. Medicated with Geodon. Psychiatric recommendations appreciated. This patient remains medically suitable for psychiatric disposition at this time
[2021-01-14] MEDS: clonazePAM 0.5 MG TAB PO SCH ×2 (09:36→22:08)
[2021-01-14] MEDS: BENZTROPINE 0.5 MG TAB PO SCH ×2 (09:37→22:07)
[2021-01-14] MEDS: DIVALPROEX DR 250 MG TAB PO SCH ×2 (09:37→22:07)
--- NOTE | 2021-01-14 10:55 | Progress Note ---
Subjective - Reason for Consult Consult date: 01/14/21 Reason for consult: psychosis - Chief Complaint Chief complaint: The patient was seen this morning. She is in the isolation room sitting. She is trembling. Her thoughts are more organized today than yesterday. She is still psychotic. She says "I just want to go home." She denies SI/HI or hallucinations. The patient then says "I love you." She is saying this to the nurse as well. The nurse caring for the patient states the patient has been very psychotic. She says the patient has been undressing and throwing her menstrual pad around and showing it. REVIEW OF SYSTEMS Constitutional: Negative for weight loss ENT: Negative for stridor Respiratory: Negative for cough or hemoptysis All other systems reviewed and are negative MENTAL STATUS EXAMINATION General Appearance and Behavior: Age appropriate, good hygiene, wearing appropriate clothes. calm, cooperative Cooperation: Cooperative Psychomotor Behavior: Psychomotor normal Mood: Confused Affect and affective range: congruent with stated mood/labile, tearful at times Thought Process: Disorganized Thought Content: hallucinations, delusions Speech: normal tone and pace Suicidal Ideation: Yes Homicidal Ideation: Denies Hallucinations: Auditory Delusions: Yes Impulse Control: Limited Insight and Judgment: Poor Memory: Limited Attention: distracted Orientation: a/o x 3 Assessment (1)Schizophrenia Current Visit: Yes Status: Acute Treatment Plan continue 1013 Increase Zyprexa 20mg po daily Continue previously prescribed medications and follow up with outpatient psychiatry in 7 to 10 days upon discharge. The patient to comply with previously prescribed medications Risks, benefits and alternatives of medications discussed with the patient, questions answered and consent obtained from patient. PSYCHOTHERAPY: Supportive psychotherapy provided MEDICAL: Per primary team DELIRIUM PRECAUTIONS: Please re-orient patient frequently, keep lights on during the day, and minimize benzodiazepines and opiates as these medications could worsen patient's confusion. 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 The sitter to give the patient resources and safety plan The patient to comply with treatment regimen and abstain from all illicit drug use. FOLLOW-UP: Will follow. Case staffed with Dr. Srivastava Mental Status Exam - Vital signs Last Vital Signs Temp 98.8 F 01/13/21 20:51 Pulse 68 01/13/21 20:51 Resp 18 01/13/21 20:51 BP 151/82 01/13/21 20:51 Pulse Ox 100 01/13/21 20:51
[2021-01-14] MEDS: diphenhydrAMINE 50 MG/ML VIAL IM PRN (10:56)
--- NOTE | 2021-01-14 13:59 | Event Note ---
No acute issues. Patient is medically clear for psychiatric care.
[2021-01-15] MEDS: LORazepam 2 MG/ML VIAL IM PRN (08:16)
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
--- NOTE | 2021-01-15 13:40 | Event Note ---
Patient still in isolation. Acutely psychotic. Seclusion order renewed.
[2021-01-15] MEDS: clonazePAM 0.5 MG TAB PO SCH ×2 (14:49→22:23)
[2021-01-15] MEDS: BENZTROPINE 0.5 MG TAB PO SCH ×2 (14:49→22:23)
[2021-01-15] MEDS: DIVALPROEX DR 250 MG TAB PO SCH ×2 (14:49→22:23)
[2021-01-16] MEDS: DIVALPROEX DR 250 MG TAB PO SCH (07:45)
[2021-01-16] MEDS: BENZTROPINE 0.5 MG TAB PO SCH ×2 (09:47→22:05)
[2021-01-16] MEDS: LORazepam 2 MG/ML VIAL IM PRN (10:50)
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
--- NOTE | 2021-01-16 16:35 | Event Note ---
Date: 01/16/21 Patient continued to have some behavioral issues requiring isolation.
[2021-01-16] MEDS: DIVALPROEX DR 500 MG TAB PO SCH (22:04)
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
[2021-01-17] MEDS: BENZTROPINE 0.5 MG TAB PO SCH ×2 (12:48→22:18)
[2021-01-17] MEDS: HALOPERIDOL 1 MG TAB PO SCH (12:49)
[2021-01-17] MEDS: DIVALPROEX DR 500 MG TAB PO SCH ×2 (12:49→22:18)
[2021-01-17] MEDS: diphenhydrAMINE 50 MG/ML VIAL IM PRN (14:55)
[2021-01-17] MEDS: HALOPERIDOL LACTATE 5 MG/1 ML INJ IM PRN (14:56)
[2021-01-18] MEDS: DIVALPROEX DR 500 MG TAB PO SCH ×2 (09:57→22:17)
[2021-01-18] MEDS: HALOPERIDOL 1 MG TAB PO SCH (09:57)
[2021-01-18] MEDS: BENZTROPINE 0.5 MG TAB PO SCH ×2 (09:57→22:17)
[2021-01-18] MEDS: LORazepam 2 MG/ML VIAL IM PRN ×2 (12:19→18:37)
--- NOTE | 2021-01-18 18:02 | Event Note ---
Date: 01/18/21 Patient stable. No overnight events. Continue 1013. Patient has been accepted at [facility]. Pending transport.
[2021-01-18 20:12] VITALS: BP 106/60
== END 2021-01-19 00:08 ==
LOC: ED 23:43 → EEVIPCON 23:43 → ED 01-19 00:08
DX: F20.9 Schizophrenia, unspecified (principal); F41.9 Anxiety disorder, unspecified; F31.9 Bipolar disorder, unspecified; Z79.899 Other long term (current) drug therapy; Z20.822 Contact with and (suspected) exposure to COVID-19
CPT/HCPCS: 36415; 80053; 80164; 80307; 81001; 84703; 85007; 85025; 96372; 96374; 96375; 99285; J1200; J1630; J2060; J2405; J3486; U0003; 80320; 99284; G0480